=== PATIENT | female | born 1960 | race Caucasian/White ===

== ENCOUNTER → 2016-11-23 | Outpatient (CLI) | payer BC ==
--- NOTE | 2016-11-24 09:53 | MM ---
Reason for exam: screening (asymptomatic). Last mammogram was performed 1 year ago. History: Patient is postmenopausal. Family history of breast cancer in maternal aunt. Benign cyst aspiration of the left breast, July 24, 2003. Taking estrogen for 1 year beginning at age 51. Physical Findings: A clinical breast exam by your physician is recommended on an annual basis and results should be correlated with mammographic findings. MG Screening Mammo w CAD Bilateral CC and MLO view(s) were taken. Prior study comparison: November 22, 2015, bilateral MG screening mammo w CAD. November 20, 2014, bilateral MG screening mammo w CAD. The breast tissue is heterogeneously dense. This may lower the sensitivity of mammography. No significant changes when compared with prior studies. ASSESSMENT: Benign, BI-RAD 2 RECOMMENDATION: Routine screening mammogram of both breasts in 1 year.
== END | disposition home or self-care (01) ==
LOC: RADMAMWWP 09:11
PROVIDERS: ATTEND Obstetrics & Gynecology
DX: Z12.31 Encounter for screening mammogram for malignant neoplasm of breast (principal); Z80.3 Family history of malignant neoplasm of breast

== ENCOUNTER → 2017-11-26 | Outpatient (CLI) | payer BC ==
--- NOTE | 2017-11-27 10:27 | MM ---
Reason for exam: screening (asymptomatic). Last mammogram was performed 1 year ago. History: Patient is postmenopausal. Family history of breast cancer in maternal aunt. Benign cyst aspiration of the left breast, July 24, 2003. Taking estrogen for 1 year beginning at age 51. Physical Findings: A clinical breast exam by your physician is recommended on an annual basis and results should be correlated with mammographic findings. MG Screening Mammo w CAD Bilateral CC and MLO view(s) were taken. Prior study comparison: November 23, 2016, bilateral MG screening mammo w CAD. November 22, 2015, bilateral MG screening mammo w CAD. The breast tissue is heterogeneously dense. This may lower the sensitivity of mammography. There is no discrete abnormality. ASSESSMENT: Negative, BI-RAD 1 RECOMMENDATION: Routine screening mammogram of both breasts in 1 year.
== END | disposition home or self-care (01) ==
LOC: RADMAMWWP 09:08
PROVIDERS: ATTEND Obstetrics & Gynecology
DX: Z12.31 Encounter for screening mammogram for malignant neoplasm of breast (principal)
CPT/HCPCS: 77067

== ENCOUNTER → 2018-05-15 | Outpatient (CLI) | payer BC ==
[2018-05-15 09:06] LABS: HCT 43.4 % (34.0-46.0); MCH 30.9 pg (25.0-35.0); MCHC 32.3 g/dL (31.0-37.0); MCV 95.7 fL (80.0-100.0); Platelet Count 289 k/uL (150-450); RBC 4.54 m/uL (3.80-5.40); RDW 12.5 % (11.5-15.5); WBC 5.4 k/uL (3.8-10.6)
[2018-05-15 09:24] LABS: Appearance,Urine Cloudy (Clear); Bacteria,Urine Rare /hpf; Bilirubin,Urine Negative (Negative); Blood,Urine Negative (Negative); Color,Urine Yellow; Glucose,Urine (UA) Negative (Negative); Ketones,Urine Negative (Negative); Leukocyte Esterase,Urine Negative (Negative); Mucus,Urine Few /hpf; Nitrite,Urine Negative (Negative); Protein,Urine Trace (Negative); Specific Gravity,Urine 1.021 (1.001-1.035); Squamous Epithelial Cell,Urine 10 /hpf (0-4); Urobilinogen,Urine <2.0 mg/dL (<2.0); WBC,Urine 1 /hpf (0-5)
[2018-05-15 16:44] LABS: Albumin 4.4 g/dL (3.80-4.90); Albumin/Globulin Ratio 2.59 (1.20-2.10); Anion Gap 8.2 mmol/L (4.00-12.00); Calcium 9.3 mg/dL (8.7-10.3); Carbon Dioxide 26.8 mmol/L (21.6-31.8); Globulin 1.7 g/dL (1.6-3.3); LDL Cholesterol,Calculated 64.4 mg/dL (0.0-131.0); Potassium 3.8 mmol/L (3.5-5.5); Total Bilirubin 0.5 mg/dL (0.2-1.2); Total Protein 6.1 g/dL (6.2-8.2); VLDL Calculation 31.6 mg/dL (5.00-40.00)
[2018-05-15 16:47] LABS: T4, Free (Free Thyroxine) 1.1 ng/dL (0.80-1.80)
== END | disposition home or self-care (01) ==
LOC: LABWHC1 08:24
PROVIDERS: ATTEND Family Medicine
DX: Z00.00 Encounter for general adult medical examination without abnormal findings (principal); R79.89 Other specified abnormal findings of blood chemistry; I10 Essential (primary) hypertension
CPT/HCPCS: 36415; 80053; 80061; 81001; 84439; 84443; 85027

== ENCOUNTER → 2019-01-02 | Outpatient (CLI) | payer BC ==
--- NOTE | 2019-01-06 10:16 | MM ---
Reason for exam: screening (asymptomatic). Last mammogram was performed 1 year and 1 month ago. History: Patient is postmenopausal. Family history of breast cancer in maternal aunt. Benign cyst aspiration of the left breast, July 24, 2003. Taking estrogen for 1 year beginning at age 51. Physical Findings: A clinical breast exam by your physician is recommended on an annual basis and results should be correlated with mammographic findings. MG Screening Mammo w CAD Bilateral CC and MLO view(s) were taken. Prior study comparison: November 26, 2017, bilateral MG screening mammo w CAD. November 23, 2016, bilateral MG screening mammo w CAD. The breast tissue is heterogeneously dense. This may lower the sensitivity of mammography. No suspicious abnormality. No significant changes when compared with prior studies. ASSESSMENT: Negative, BI-RAD 1 RECOMMENDATION: Routine screening mammogram of both breasts in 1 year.
== END | disposition home or self-care (01) ==
LOC: RADMAMWWP 16:20
PROVIDERS: ATTEND Obstetrics & Gynecology
DX: Z12.31 Encounter for screening mammogram for malignant neoplasm of breast (principal)
CPT/HCPCS: 77067

== ENCOUNTER 2019-05-12 12:01 | Day surgery (SDC) | payer BC ==
[2019-05-08 11:13] VITALS: BMI 31.7
[2019-05-12 12:25] VITALS: TEMP 97.3
[2019-05-12] MEDS ORDERED: LIDOCAINE 1% 20 ML VIAL (10MG/ML) FOR IV START INTRADERMA ONE (12:28)
[2019-05-12] MEDS ORDERED: LACTATED RINGERS 1,000 ML IV ONE (12:29)
[2019-05-12] MEDS ORDERED: PROPOFOL 10 MG/ML 20 ML VIAL IV ONE (13:30)
[2019-05-12] MEDS ORDERED: MIDAZOLAM 2 MG/2 ML VIAL ONE (13:30)
[2019-05-12 14:25] VITALS: RESP 16
[2019-05-12 14:49] VITALS: BP 143/84; PULSE 70
--- NOTE | 2019-05-12 15:52 | P.PCN ---
Date of Procedure: 05/12/19 Procedure(s) Performed: PREOPERATIVE DIAGNOSIS: Rectal bleeding POSTOPERATIVE DIAGNOSIS: Anterior anal fissure with sentinel tag PROCEDURE: Colonoscopy ANESTHESIA: MAC SURGEON: Isauro Majano M.D. SPECIMENS: None ENDOSCOPIC PROCEDURE: The patient was placed on the endoscopy table in the left decubitus position. The Olympus colonoscope was inserted into the anus and passed under direct visualization to the base of the cecum. The appendiceal orifice was visualized. From that point the scope was slowly withdrawn inspecting all surfaces carefully. There were no neoplastic inflammatory or polypoid lesions throughout the cecum, ascending, transverse, descending, sigmoid and rectum. There was no visible diverticulosis noted. The patient's colon was tortuous. There was some relative lack of distensibility of the colon throughout particularly throughout the sigmoid colon. 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 No additional masses or abnormalities were identified on palpation. The patient was taken to the recovery room in stable condition per anesthesia guidelines. RECOMMENDATIONS: Increase stool softeners. Increase dietary fiber and hydration. Begin nitroglycerin ointment. Follow-up in the office 1 month.
== END 2019-05-12 15:08 | disposition home or self-care (01) ==
LOC: ORWHC2ENDO 12:01
PROVIDERS: ATTEND Surgery
DX: K60.1 Chronic anal fissure (principal); K62.5 Hemorrhage of anus and rectum; Q43.8 Other specified congenital malformations of intestine; H81.09 Meniere's disease, unspecified ear; E66.9 Obesity, unspecified; Z88.1 Allergy status to other antibiotic agents; Z68.31 Body mass index [BMI] 31.0-31.9, adult; Z90.710 Acquired absence of both cervix and uterus; Z79.899 Other long term (current) drug therapy; Z90.49 Acquired absence of other specified parts of digestive tract; Z82.49 Family history of ischemic heart disease and other diseases of the circulatory system; Z82.3 Family history of stroke
CPT/HCPCS: 45378; J2250; J2704

== ENCOUNTER → 2019-06-30 | Outpatient (CLI) | payer BC ==
[2019-06-30 08:26] LABS: HCT 43.5 % (34.0-46.0); HGB 14.2 gm/dL (11.4-16.0); MCH 30.9 pg (25.0-35.0); MCHC 32.7 g/dL (31.0-37.0); MCV 94.6 fL (80.0-100.0); Mean Platelet Volume 7.7; Platelet Count 277 k/uL (150-450); RBC 4.59 m/uL (3.80-5.40); RDW 12.2 % (11.5-15.5); WBC 5.4 k/uL (3.8-10.6)
[2019-06-30 08:56] LABS: Bacteria,Urine Rare /hpf; Hyaline Casts,Urine 1 /lpf (0-2); Mucus,Urine Rare /hpf; RBC,Urine <1 /hpf (0-5); Squamous Epithelial Cell,Urine 14 /hpf (0-4); WBC,Urine 2 /hpf (0-5)
[2019-06-30 08:57] LABS: Appearance,Urine Clear (Clear); Color,Urine Yellow; Glucose,Urine (UA) Negative (Negative); Protein,Urine 1+ (Negative); Specific Gravity,Urine 1.005 (1.001-1.035)
[2019-06-30 08:58] LABS: Bilirubin,Urine Negative (Negative); Blood,Urine Negative (Negative); Ketones,Urine Negative (Negative); Leukocyte Esterase,Urine Negative (Negative); Nitrite,Urine Negative (Negative); Urobilinogen,Urine <2.0 mg/dL (<2.0)
[2019-06-30 11:40] LABS: African American GFR (CKD) 92.9 (60.0-200.0); Albumin 4.4 g/dL (3.80-4.90); Albumin/Globulin Ratio 2.59 (1.60-3.17); Anion Gap 4.3 mmol/L (4.00-12.00); BUN/Creat Ratio 16.25 Ratio (12.00-20.00); Calcium 9.6 mg/dL (8.7-10.3); Carbon Dioxide 31.7 mmol/L (21.6-31.8); Chol/HDL Ratio 1.75; Globulin 1.7 g/dL (1.6-3.3); Non-African American GFR(CKD) 80.1 (60.0-200.0); Total Bilirubin 0.5 mg/dL (0.2-1.2); Total Protein 6.1 g/dL (6.2-8.2)
[2019-06-30 11:50] LABS: T4, Free (Free Thyroxine) 1.2 ng/dL (0.80-1.80)
== END | disposition home or self-care (01) ==
LOC: LABWHC1 07:48
PROVIDERS: ATTEND Family Medicine
DX: I10 Essential (primary) hypertension (principal); R94.6 Abnormal results of thyroid function studies
CPT/HCPCS: 36415; 80053; 80061; 81001; 84439; 84443; 84481; 85027

== ENCOUNTER → 2020-02-12 | Outpatient (CLI) | payer BC ==
--- NOTE | 2020-02-13 11:02 | MM ---
Reason for exam: screening (asymptomatic). Last mammogram was performed 1 year and 1 month ago. History: Patient is postmenopausal. Family history of breast cancer in maternal aunt. Benign cyst aspiration of the left breast, July 24, 2003. Taking estrogen for 8 years beginning at age 51. Physical Findings: A clinical breast exam by your physician is recommended on an annual basis and results should be correlated with mammographic findings. MG Screening Mammo w CAD Bilateral CC and MLO view(s) were taken. Prior study comparison: January 02, 2019, bilateral MG screening mammo w CAD. November 26, 2017, bilateral MG screening mammo w CAD. The breast tissue is heterogeneously dense. This may lower the sensitivity of mammography. There is no discrete abnormality. Focal asymmetry upper outer left breast is stable since 2016. No significant changes when compared with prior studies. ASSESSMENT: Benign, BI-RAD 2 RECOMMENDATION: Routine screening mammogram of both breasts in 1 year.
== END | disposition home or self-care (01) ==
LOC: RADMAMWWP 09:21
PROVIDERS: ATTEND Obstetrics & Gynecology
DX: Z12.31 Encounter for screening mammogram for malignant neoplasm of breast (principal)
CPT/HCPCS: 77067

== ENCOUNTER → 2020-05-31 | Outpatient (CLI) | payer BC ==
[2020-05-31 08:27] LABS: HCT 42.4 % (34.0-46.0); HGB 14.4 gm/dL (11.4-16.0); MCH 31.9 pg (25.0-35.0); MCHC 33.9 g/dL (31.0-37.0); MCV 94.2 fL (80.0-100.0); Mean Platelet Volume 7.5; Platelet Count 239 k/uL (150-450); RDW 12.4 % (11.5-15.5); WBC 4.9 k/uL (3.8-10.6)
[2020-05-31 10:58] LABS: African American GFR (CKD) 92.2 (60.0-200.0); Albumin 4.4 g/dL (3.80-4.90); Albumin/Globulin Ratio 2.59 (1.60-3.17); Anion Gap 5.5 mmol/L (4.00-12.00); Calcium 9.5 mg/dL (8.7-10.3); Carbon Dioxide 32.5 mmol/L (21.6-31.8); Chol/HDL Ratio 1.93; Globulin 1.7 g/dL (1.6-3.3); LDL Cholesterol,Calculated 56.2 mg/dL (0.0-131.0); Non-African American GFR(CKD) 79.6 (60.0-200.0); Potassium 3.8 mmol/L (3.5-5.5); Total Bilirubin 0.5 mg/dL (0.3-1.2); Total Protein 6.1 g/dL (6.2-8.2); VLDL Calculation 19.8 mg/dL (5.00-40.00)
== END | disposition home or self-care (01) ==
LOC: LABWHC1 07:52
PROVIDERS: ATTEND Family Medicine
DX: Z00.01 Encounter for general adult medical examination with abnormal findings (principal); R53.83 Other fatigue; I10 Essential (primary) hypertension; E66.3 Overweight
CPT/HCPCS: 36415; 80053; 80061; 85027

== ENCOUNTER 2020-08-21 19:44 | Emergency (ER) | payer BC ==
[2020-08-21 19:49] VITALS: RESP 16; TEMP 97.5
--- NOTE | 2020-08-21 19:54 | ED ---
General Adult HPI - General Chief complaint: Dizziness Stated complaint: dizziness Time Seen by Provider: 08/21/20 19:51 Source: patient, EMS Mode of arrival: EMS Limitations: no limitations - History of Present Illness Initial comments: Patient presents to the ED by ambulance for evaluation. Patient states that she has felt dizzy since after eating lunch this afternoon. Patient states that she took her blood pressure at that time, and she obtained a reading of 170/110, which is very high for her. Patient also states that she had "pounding" heart palpitations earlier today. Patient denies having any dizziness or palpitations currently, and she denies having any symptoms at all at this time. Per EMS, the patient was thought to be in rapid atrial fibrillation on their front desk monitor, but rhythm strips printed out by EMS show sinus tachycardia and not atrial fibrillation. Patient denies having any pain, fever or chills, headache, focal numbness/weakness/neuro deficit, visual changes, chest pain or pressure, dyspnea, cough or cold symptoms, syncope, abdominal pain, nausea/vomiting/diarrhea, bloody or melanotic stool, dysuria or urinary symptoms, leg or calf swelling or pain, or any other symptoms or complaints. - Related Data Home Medications Medication Instructions Recorded Confirmed Cetirizine HCl [Zyrtec] 10 mg PO HS 05/08/19 08/21/20 Triamterene-Hctz 37.5-25Mg 1 tab PO DAILY 05/08/19 08/21/20 [Dyazide 37.5-25 Capsule] Estrogens, Conjugated [Premarin] 0.3 mg PO AC-SUPPER 08/21/20 08/21/20 Fluticasone Nasal [place] [Flonase 2 spr EA NOSTRIL DAILY PRN 08/21/20 08/21/20 Nasal [place]] Multivitamins, Thera [Multivitamin 1 tab PO AC-SUPPER 08/21/20 08/21/20 (formulary)] Allergies Allergy/AdvReac Type Severity Reaction Status Date / Time amoxicillin Allergy Rash/Hives Verified 08/21/20 21:08 Review of Systems ROS Statement: Those systems with pertinent positive or pertinent negative responses have been documented in the HPI. ROS Other: All systems not noted in ROS Statement are negative. Past Medical History Past Medical History: Hypertension Additional Past Medical History / Comment(s): hx of menieres, possible hemmorhoids History of Any Multi-Drug Resistant Organisms: None Reported Past Surgical History: Appendectomy, Section Additional Past Surgical History / Comment(s): colonoscopy Past Anesthesia/Blood Transfusion Reactions: No Reported Reaction Past Psychological History: No Psychological Hx Reported Smoking Status: Never smoker Past Alcohol Use History: Rare Past Drug Use History: None Reported - Past Family History Mother Family Medical History: No Reported History General Exam Limitations: no limitations General appearance: alert, in no apparent distress Head exam: Present: atraumatic, normocephalic Eye exam: Present: normal appearance, PERRL, EOMI ENT exam: Present: mucous membranes moist Neck exam: Present: other (Trachea is in midline) Respiratory exam: Present: normal lung sounds bilaterally. Absent: respiratory distress, wheezes, rales, rhonchi, stridor Cardiovascular Exam: Present: regular rate, normal rhythm, normal heart sounds, other (Normal radial pulses bilaterally) GI/Abdominal exam: Present: soft. Absent: distended, tenderness, guarding Extremities exam: Absent: tenderness, pedal edema, calf tenderness Neurological exam: Present: alert, oriented X3, CN II-XII intact. Absent: motor sensory deficit Psychiatric exam: Present: normal affect, normal mood Skin exam: Present: warm, dry, intact, normal color Course Vital Signs 08/21/20 19:46 Temperature 97.5 F L Pulse Rate 91 Respiratory 16 Rate Blood Pressure 144/86 O2 Sat by Pulse 100 Oximetry - Reevaluation(s) Reevaluation #1: 08/21/20 22:58 Patient continues to deny having any dizziness, palpitations or symptoms while in the ED. Patient remains in normal sinus rhythm on the front desk monitor. Patient continues to be breathing comfortably with a normal room air oxygen saturation. Patient states that she has been ambulatory to the bathroom while in the ED without development of any symptoms. Patient and son are aware the patient's test results, and they both feel comfortable with the patient going home at this time. Patient was counseled about dizziness and palpitations, and she was clearly explained return and follow-up instructions. Patient was instructed to have a low threshold for return to the ED should her symptoms worsen, and she was instructed to follow up closely with her primary care provider. Patient feels comfortable this plan. EKG Findings - EKG Comments: EKG Findings:: Normal sinus rhythm, ventricular rate of 85 bpm, no ectopy, no OK and QRS intervals, normal QT interval, normal axis, no ST or T-wave abnormality, left anterior fascicular block Medical Decision Making - Medical Decision Making Patient has been in normal sinus rhythm while in the emergency department. Patient's EMS rhythm strips also demonstrate a sinus rhythm. Patient's labs and imaging studies are fairly unremarkable. Patient has been asymptomatic while in the ED. I do not suspect an emergent medical condition at this time. Will discharge patient home with her son at this time. Patient feels comfortable this plan. - Lab Data Result diagrams: 08/21/20 20:00 08/21/20 20:00 Lab Results 08/21/20 08/21/20 08/21/20 Range/Units 20:00 20:00 20:00 WBC 7.2 (3.8-10.6) k/uL RBC 5.00 (3.80-5.40) m/uL Hgb 15.1 (11.4-16.0) gm/dL Hct 45.9 (34.0-46.0) % MCV 91.7 (80.0-100.0) fL MCH 30.3 (25.0-35.0) pg MCHC 33.0 (31.0-37.0) g/dL RDW 12.9 (11.5-15.5) % Plt Count 302 (150-450) k/uL MPV 7.6 Neutrophils % 62 % Lymphocytes % 27 % Monocytes % 5 % Eosinophils % 3 % Basophils % 1 % Neutrophils # 4.5 (1.3-7.7) k/uL Lymphocytes # 1.9 (1.0-4.8) k/uL Monocytes # 0.4 (0-1.0) k/uL Eosinophils # 0.2 (0-0.7) k/uL Basophils # 0.1 (0-0.2) k/uL PT 10.6 (9.0-12.0) sec INR 1.0 (<1.2) APTT 24.9 (22.0-30.0) sec Sodium 136 L (137-145) mmol/L Potassium 3.5 (3.5-5.1) mmol/L Chloride 101 (98-107) mmol/L Carbon Dioxide 23 (22-30) mmol/L Anion Gap 12 mmol/L BUN 16 (7-17) mg/dL Creatinine 0.81 (0.52-1.04) mg/dL Est GFR (CKD-EPI)AfAm >90 (>60 ml/min/1.73 sqM) Est GFR (CKD-EPI)NonAf 79 (>60 ml/min/1.73 sqM) Glucose 121 H (74-99) mg/dL Calcium 10.2 (8.4-10.2) mg/dL Magnesium 1.8 (1.6-2.3) mg/dL Troponin I (0.000-0.034) ng/mL 08/21/20 Range/Units 20:00 WBC (3.8-10.6) k/uL RBC (3.80-5.40) m/uL Hgb (11.4-16.0) gm/dL Hct (34.0-46.0) % MCV (80.0-100.0) fL MCH (25.0-35.0) pg MCHC (31.0-37.0) g/dL RDW (11.5-15.5) % Plt Count (150-450) k/uL MPV Neutrophils % % Lymphocytes % % Monocytes % % Eosinophils % % Basophils % % Neutrophils # (1.3-7.7) k/uL Lymphocytes # (1.0-4.8) k/uL Monocytes # (0-1.0) k/uL Eosinophils # (0-0.7) k/uL Basophils # (0-0.2) k/uL PT (9.0-12.0) sec INR (<1.2) APTT (22.0-30.0) sec Sodium (137-145) mmol/L Potassium (3.5-5.1) mmol/L Chloride (98-107) mmol/L Carbon Dioxide (22-30) mmol/L Anion Gap mmol/L BUN (7-17) mg/dL Creatinine (0.52-1.04) mg/dL Est GFR (CKD-EPI)AfAm (>60 ml/min/1.73 sqM) Est GFR (CKD-EPI)NonAf (>60 ml/min/1.73 sqM) Glucose (74-99) mg/dL Calcium (8.4-10.2) mg/dL Magnesium (1.6-2.3) mg/dL Troponin I 0.017 (0.000-0.034) ng/mL - Radiology Data Radiology results: report reviewed (Chest x-ray: No acute process) Disposition Clinical Impression: Dizziness, Palpitations Disposition: HOME SELF-CARE Condition: Stable Instructions (If sedation given, give patient instructions): Dizziness (ED), Heart Palpitations (ED) Additional Instructions: Return to the ER immediately should you develop increased dizziness, fainting, chest pain, shortness of breath, persistent vomiting, a fever, or new or worsening symptoms. Follow up closely with your primary care provider. Is patient prescribed a controlled substance at d/c from ED?: No Referrals: Avery Tate MD [Primary Care Provider] - 1-2 days Time of Disposition: 23:01
[2020-08-21] MEDS ORDERED: SODIUM CHLORIDE 0.9% 500 ML 500 ML IV STA (20:34)
[2020-08-21 20:55] LABS: Basophils # (A) 0.1 k/uL (0-0.2); Basophils % (A) 1 %; Eosinophils # (A) 0.2 k/uL (0-0.7); Eosinophils % (A) 3 %; HCT 45.9 % (34.0-46.0); HGB 15.1 gm/dL (11.4-16.0); Lymphocytes # (A) 1.9 k/uL (1.0-4.8); Lymphocytes % (A) 27 %; MCH 30.3 pg (25.0-35.0); MCV 91.7 fL (80.0-100.0); Mean Platelet Volume 7.6; Monocytes # (A) 0.4 k/uL (0-1.0); Monocytes % (A) 5 %; Neutrophils # (A) 4.5 k/uL (1.3-7.7); Neutrophils % (A) 62 %; Platelet Count 302 k/uL (150-450); RDW 12.9 % (11.5-15.5); WBC 7.2 k/uL (3.8-10.6)
[2020-08-21 21:05] LABS: African American GFR (CKD) >90 (>60 ml/min/1.73 sqM); Anion Gap 12 mmol/L; Blood Urea Nitrogen 16 mg/dL (7-17); Calcium 10.2 mg/dL (8.4-10.2); Carbon Dioxide 23 mmol/L (22-30); Chloride 101 mmol/L (98-107); Glucose 121 mg/dL (74-99); Magnesium 1.8 mg/dL (1.6-2.3); Non-African American GFR(CKD) 79 (>60 ml/min/1.73 sqM); Potassium 3.5 mmol/L (3.5-5.1); Sodium 136 mmol/L (137-145)
[2020-08-21 21:15] LABS: Partial Thromboplastin Time 24.9 sec (22.0-30.0); Prothrombin Time 10.6 sec (9.0-12.0)
--- NOTE | 2020-08-21 21:46 | XR ---
EXAMINATION TYPE: XR chest 1V portable DATE OF EXAM: 08/21/2020 COMPARISON: 06/12/2013. HISTORY: Dizziness. TECHNIQUE: Single frontal view of the chest is obtained. FINDINGS: There is no focal air space opacity, pleural effusion, or pneumothorax seen. The cardiac silhouette size is within normal limits. The osseous structures are intact. IMPRESSION: No acute process.
[2020-08-21 23:14] VITALS: BP 143/90; PULSE 82
== END 2020-08-21 23:15 | disposition home or self-care (01) ==
LOC: EC 19:44
DX: R42 Dizziness and giddiness (principal); R00.2 Palpitations; I10 Essential (primary) hypertension
CPT/HCPCS: 36415; 71045; 80048; 83735; 84484; 85025; 85610; 85730; 93005; 99284

== ENCOUNTER → 2021-02-21 | Outpatient (CLI) | payer BC ==
--- NOTE | 2021-02-22 12:10 | MM ---
Reason for exam: screening (asymptomatic). Last mammogram was performed 1 year ago. History: Patient is postmenopausal. Family history of breast cancer in maternal aunt. Benign cyst aspiration of the left breast, July 24, 2003. Taking estrogen for 8 years beginning at age 51. Physical Findings: A clinical breast exam by your physician is recommended on an annual basis and results should be correlated with mammographic findings. MG Screening Mammo w CAD Bilateral CC and MLO view(s) were taken. Prior study comparison: February 12, 2020, bilateral MG screening mammo w CAD. January 02, 2019, bilateral MG screening mammo w CAD. The breast tissue is heterogeneously dense. This may lower the sensitivity of mammography. There is no discrete abnormality. ASSESSMENT: Negative, BI-RAD 1 RECOMMENDATION: Routine screening mammogram of both breasts in 1 year.
== END | disposition home or self-care (01) ==
LOC: RADMAMWWP 09:47
PROVIDERS: ATTEND Obstetrics & Gynecology
DX: Z12.31 Encounter for screening mammogram for malignant neoplasm of breast (principal); Z80.3 Family history of malignant neoplasm of breast
CPT/HCPCS: 77067

== ENCOUNTER 2021-05-24 17:30 | Inpatient (IN) | payer BC ==
[2021-05-24] MEDS ORDERED: SODIUM CHLORIDE 0.9% 1,000 ML IV STA (17:47)
[2021-05-24] MEDS ORDERED: HEPARIN SODIUM 1,000 UN/ML (10ML VL) IV PRN (17:53)
[2021-05-24] MEDS ORDERED: HEPARIN SODIUM 1,000 UN/ML (10ML VL) IV ONE (17:53)
[2021-05-24] MEDS ORDERED: DILTIAZEM DRIP BOLUS FROM BAG 1 MG SOLN IV ONE (17:53)
--- NOTE | 2021-05-24 17:57 | ED ---
Dizziness HPI - General Chief Complaint: Dizziness Stated Complaint: AFIB Time Seen by Provider: 05/24/21 17:42 Source: patient, EMS Mode of arrival: EMS Limitations: no limitations - History of Present Illness Initial Comments: Dictation was produced using [employer] dictation software. please excuse any grammatical, word or spelling errors. Chief Complaint: 61-year-old female with past medical history of hypertension hemorrhoids presents to the emergency department for dizziness palpitations History of Present Illness: Is 61-year-old female she denies any history of cardiac comorbidities. She has history of hypertension. She presents emergency department with palpitations and dizziness patient states that her symptoms began around 2:30 PM today. Patient denies any chest pain. She does feel mildly dizzy but not lightheaded. Patient denies any history of atrial fibrillation or any cardiac comorbidities. Denies any fevers. The ROS documented in this emergency department record has been reviewed and confirmed by me. Those systems with pertinent positive or negative responses have been documented in the HPI. All other systems are other negative and/or noncontributory. PHYSICAL EXAM: General Impression: Alert and oriented x3, not in acute distress, nondiaphoretic HEENT: Normocephalic atraumatic, extra-ocular movements intact, pupils equal and reactive to light bilaterally, mucous membranes moist. Cardiovascular: Irregularly irregular Chest: Able to complete full sentences, no retractions, no tachypnea Abdomen: abdomen soft, non-tender, non-distended, no organomegaly Musculoskeletal: Pulses present and equal in all extremities, no peripheral edema Motor: no focal deficits noted Neurological: CN II-XII grossly intact, no focal motor or sensory deficits noted Skin: Intact with no visualized rashes Psych: Normal affect and mood ED course: 61-year-old female presents to the emergency department for pa lpitations and dizziness. Vital signs upon arrival shows heart rate 139, rest of vital signs within acceptable limits. EKG shows irregular narrow QRS complex tachycardia. There are no signs of ischemia or infarction. Patient given Cardizem bolus and started on Cardizem drip with improvement of heart rate. Patient's monitor review. She converted to normal sinus rhythm at approximately 641. Vital signs are significantly improved with normal heart rate normal blood pressure. EKG interpretation: Ventricular rate 52, A. fib with RVR, QRS 80, QTC 492. No no QTC prolongation, no ST or T-wave changes noted. EKG compared to 08/21/2020 showing no changes. Overall, this EKG is consistent with new onset A. fib. Laboratory evaluation obtained. CBC unremarkable. Coag panel is negative. Metabolic panel within acceptable limits. Mild hypokalemia of 3.3. Lactic acidosis 2.5. Troponin 0.013. Patient has history of slightly elevated troponin. Patient reevaluated at bedside at 7:30 PM. She is well-appearing. She is currently in normal sinus rhythm. Patient likely experiencing paroxysmal atrial fibrillation. Patient be admitted. She'll be maintained on heparin and cardiology was consulted. Patient admitted to [facility]. - Related Data Home Medications Medication Instructions Recorded Confirmed Cetirizine HCl [Zyrtec] 10 mg PO HS 05/08/19 05/24/21 Triamterene-Hctz 37.5-25Mg 1 tab PO DAILY 05/08/19 05/24/21 [Dyazide 37.5-25 Capsule] ALPRAZolam [Xanax] 0.125 - 0.25 mg PO TID PRN 05/24/21 05/24/21 Estrogens, Conjugated [Premarin] 0.625 mg PO W/SUPPER 05/24/21 05/24/21 Multivit-Min/Iron/Folic/Lutein 1 tab PO W/SUPPER 05/24/21 05/24/21 [Centrum Silver Women Tablet] Allergies Allergy/AdvReac Type Severity Reaction Status Date / Time amoxicillin Allergy Rash/Hives Verified 08/21/20 21:08 Review of Systems ROS Statement: Those systems with pertinent positive or pertinent negative responses have been documented in the HPI. ROS Other: All systems not noted in ROS Statement are negative. Past Medical History Past Medical History: Hypertension Additional Past Medical History / Comment(s): hx of menieres, possible hemmorhoi ds History of Any Multi-Drug Resistant Organisms: None Reported Past Surgical History: Appendectomy, Section Additional Past Surgical History / Comment(s): colonoscopy Past Anesthesia/Blood Transfusion Reactions: No Reported Reaction Past Psychological History: No Psychological Hx Reported Smoking Status: Never smoker Past Alcohol Use History: Rare Past Drug Use History: None Reported - Past Family History Mother Family Medical History: No Reported History General Exam Limitations: no limitations Course Vital Signs 05/24/21 05/24/21 05/24/21 17:43 17:58 18:11 Temperature 97.4 F L Pulse Rate 139 H 174 H 126 H Respiratory 18 18 18 Rate Blood Pressure 136/117 175/107 113/92 O2 Sat by Pulse 99 99 98 Oximetry 05/24/21 18:53 Temperature Pulse Rate 85 Respiratory 16 Rate Blood Pressure 149/92 O2 Sat by Pulse 98 Oximetry Medical Decision Making - Lab Data Result diagrams: 05/24/21 18:03 05/24/21 18:03 Lab Results 05/24/21 05/24/21 05/24/21 Range/Units 18:03 18:03 18:03 WBC 7.0 (3.8-10.6) k/uL RBC 5.02 (3.80-5.40) m/uL Hgb 16.1 H (11.4-16.0) gm/dL Hct 48.2 H (34.0-46.0) % MCV 96.1 (80.0-100.0) fL MCH 32.1 (25.0-35.0) pg MCHC 33.4 (31.0-37.0) g/dL RDW 12.9 (11.5-15.5) % Plt Count 312 (150-450) k/uL MPV 7.5 Neutrophils % 61 % Lymphocytes % 27 % Monocytes % 5 % Eosinophils % 3 % Basophils % 1 % Neutrophils # 4.3 (1.3-7.7) k/uL Lymphocytes # 1.9 (1.0-4.8) k/uL Monocytes # 0.4 (0-1.0) k/uL Eosinophils # 0.2 (0-0.7) k/uL Basophils # 0.1 (0-0.2) k/uL PT 10.0 (9.0-12.0) sec INR 0.9 (<1.2) APTT 24.7 (22.0-30.0) sec Sodium 140 (137-145) mmol/L Potassium 3.3 L (3.5-5.1) mmol/L Chloride 103 (98-107) mmol/L Carbon Dioxide 24 (22-30) mmol/L Anion Gap 13 mmol/L BUN 15 (7-17) mg/dL Creatinine 0.72 (0.52-1.04) mg/dL Est GFR (CKD-EPI)AfAm >90 (>60 ml/min/1.73 sqM) Est GFR (CKD-EPI)NonAf >90 (>60 ml/min/1.73 sqM) Glucose 144 H (74-99) mg/dL Plasma Lactic Acid [place] (0.7-2.0) mmol/L Calcium 10.0 (8.4-10.2) mg/dL Magnesium 1.8 (1.6-2.3) mg/dL Total Bilirubin 0.4 (0.2-1.3) mg/dL AST 20 (14-36) U/L ALT 16 (4-34) U/L Alkaline Phosphatase 65 (38-126) U/L Troponin I (0.000-0.034) ng/mL NT-Pro-B Natriuret Pep pg/mL Total Protein 7.3 (6.3-8.2) g/dL Albumin 4.6 (3.5-5.0) g/dL 05/24/21 05/24/21 05/24/21 Range/Units 18:03 18:03 19:00 WBC (3.8-10.6) k/uL RBC (3.80-5.40) m/uL Hgb (11.4-16.0) gm/dL Hct (34.0-46.0) % MCV (80.0-100.0) fL MCH (25.0-35.0) pg MCHC (31.0-37.0) g/dL RDW (11.5-15.5) % Plt Count (150-450) k/uL MPV Neutrophils % % Lymphocytes % % Monocytes % % Eosinophils % % Basophils % % Neutrophils # (1.3-7.7) k/uL Lymphocytes # (1.0-4.8) k/uL Monocytes # (0-1.0) k/uL Eosinophils # (0-0.7) k/uL Basophils # (0-0.2) k/uL PT (9.0-12.0) sec INR (<1.2) APTT (22.0-30.0) sec Sodium (137-145) mmol/L Potassium (3.5-5.1) mmol/L Chloride (98-107) mmol/L Carbon Dioxide (22-30) mmol/L Anion Gap mmol/L BUN (7-17) mg/dL Creatinine (0.52-1.04) mg/dL Est GFR (CKD-EPI)AfAm (>60 ml/min/1.73 sqM) Est GFR (CKD-EPI)NonAf (>60 ml/min/1.73 sqM) Glucose (74-99) mg/dL Plasma Lactic Acid Ruben 2.5 H* (0.7-2.0) mmol/L Calcium (8.4-10.2) mg/dL Magnesium (1.6-2.3) mg/dL Total Bilirubin (0.2-1.3) mg/dL AST (14-36) U/L ALT (4-34) U/L Alkaline Phosphatase (38-126) U/L Troponin I 0.013 (0.000-0.034) ng/mL NT-Pro-B Natriuret Pep 67 pg/mL Total Protein (6.3-8.2) g/dL Albumin (3.5-5.0) g/dL Disposition Clinical Impression: New onset a-fib Disposition: ADMITTED IP TO THIS HOSP Condition: Fair Referrals: Avery Tate MD [Primary Care Provider] - 1-2 days
[2021-05-24] MEDS ORDERED: HEPARIN SOD,PORK IN 0.45% NACL 25,000 UNIT in 0.45% NACL 1 250ML.BAG IV SCH (18:00)
[2021-05-24] MEDS ORDERED: DILTIAZEM 125 MG in SODIUM CHLORIDE 0.9% 100 ML IV SCH (18:00)
[2021-05-24 18:10] LABS: Basophils # (A) 0.1 k/uL (0-0.2); Basophils % (A) 1 %; Eosinophils # (A) 0.2 k/uL (0-0.7); Eosinophils % (A) 3 %; HCT 48.2 % (34.0-46.0); HGB 16.1 gm/dL (11.4-16.0); Lymphocytes # (A) 1.9 k/uL (1.0-4.8); Lymphocytes % (A) 27 %; MCH 32.1 pg (25.0-35.0); MCHC 33.4 g/dL (31.0-37.0); MCV 96.1 fL (80.0-100.0); Mean Platelet Volume 7.5; Monocytes # (A) 0.4 k/uL (0-1.0); Monocytes % (A) 5 %; Neutrophils # (A) 4.3 k/uL (1.3-7.7); Neutrophils % (A) 61 %; Platelet Count 312 k/uL (150-450); RBC 5.02 m/uL (3.80-5.40); RDW 12.9 % (11.5-15.5)
[2021-05-24 18:21] LABS: ALT 16 U/L (4-34); AST 20 U/L (14-36); African American GFR (CKD) >90 (>60 ml/min/1.73 sqM); Albumin 4.6 g/dL (3.5-5.0); Alkaline Phosphatase 65 U/L (38-126); Anion Gap 13 mmol/L; Blood Urea Nitrogen 15 mg/dL (7-17); Carbon Dioxide 24 mmol/L (22-30); Chloride 103 mmol/L (98-107); Glucose 144 mg/dL (74-99); Magnesium 1.8 mg/dL (1.6-2.3); Non-African American GFR(CKD) >90 (>60 ml/min/1.73 sqM); Potassium 3.3 mmol/L (3.5-5.1); Sodium 140 mmol/L (137-145); Total Bilirubin 0.4 mg/dL (0.2-1.3); Total Protein 7.3 g/dL (6.3-8.2)
--- NOTE | 2021-05-24 18:44 | XR ---
EXAMINATION TYPE: XR chest 1V portable DATE OF EXAM: 05/24/2021 COMPARISON: 08/21/2020 HISTORY: 61 years Female. STUDY INDICATION GIVEN: afib rvr . TECHNIQUE: Frontal chest radiograph IMPRESSION: No focal airspace opacity, pneumothorax or pleural effusion. Normal cardiomediastinal silhouette. No acute osseous abnormality. No significant change in appearance compared to prior.
[2021-05-24 18:46] LABS: INR 0.9 (<1.2); Partial Thromboplastin Time 24.7 sec (22.0-30.0)
[2021-05-24] MEDS ORDERED: NALOXONE 0.4 MG/ML 1 ML VIAL IV PRN (19:39)
[2021-05-24] MEDS ORDERED: SODIUM CHLORIDE 0.9% 500 ML 500 ML IV ONE (20:53)
[2021-05-24] MEDS ORDERED: ALPRAZolam 0.25 MG TAB PO PRN (22:12)
[2021-05-24] MEDS ORDERED: POTASSIUM CHLORIDE ER 20 MEQ TAB.ER PO STA (22:17)
--- NOTE | 2021-05-24 22:22 | P.HPIM ---
History of Present Illness H&P Date: 05/24/21 Chief Complaint: Dizziness lightheadedness 61-year-old female with hypertension Patient comes in with sudden onset palpitations feeling dizzy and lightheaded started about 2:30 PM she noticed that her blood pressure was high with systolic in the 200 she denies any cardiac history other than hypertension in the past she denies ever having her blood pressure that high. She denies any associated chest pain or shortness of breath denies any headaches slurred speech changes in vision or hearing. Fluttering of the heart and dizziness did not go away and she decided come to the hospital for evaluation. She was found to be in A. fib with RVR she denies any history of A. fib in the past. However she does recall some episodes of fluttering in the past few years. She admits being under stress sick family members in life in general. She does not have any excessive caffeine intake. She denies any weight loss medications or any [id number] herbal products. She claims to be active person she walks daily with no limitations with physical activity EKG did confirm A. fib with RVR Patient started on Cardizem and heparin drip and admitted for cardiology evaluation Patient converted to sinus rhythm on Cardizem drip then she became briefly hypotensive Cardizem drip was discontinued and patient was given a liter bolus of IV fluid, this helps improve her symptoms blood pressure improved from systolic in the 80s up to 120 patient currently asymptomatic Review of Systems Pertinent positives as noted in HPI. All other systems were reviewed and are negative Past Medical History Past Medical History: Hypertension Additional Past Medical History / Comment(s): hx of menieres, possible hemmorhoids History of Any Multi-Drug Resistant Organisms: None Reported Past Surgical History: Appendectomy, Section Additional Past Surgical History / Comment(s): colonoscopy Past Anesthesia/Blood Transfusion Reactions: No Reported Reaction Past Psychological History: No Psychological Hx Reported Smoking Status: Never smoker Past Alcohol Use History: Rare Past Drug Use History: None Reported - Past Family History Mother Family Medical History: No Reported History Medications and Allergies Home Medications Medication Instructions Recorded Confirmed Type Cetirizine HCl [Zyrtec] 10 mg PO HS 05/08/19 05/24/21 History Triamterene-Hctz 37.5-25Mg 1 tab PO DAILY 05/08/19 05/24/21 History [Dyazide 37.5-25 Capsule] ALPRAZolam [Xanax] 0.125 - 0.25 mg PO TID PRN 05/24/21 05/24/21 History Estrogens, Conjugated [Premarin] 0.625 mg PO W/SUPPER 05/24/21 05/24/21 History Multivit-Min/Iron/Folic/Lutein 1 tab PO W/SUPPER 05/24/21 05/24/21 History [Centrum Silver Women Tablet] Allergies Allergy/AdvReac Type Severity Reaction Status Date / Time amoxicillin Allergy Rash/Hives Verified 08/21/20 21:08 Physical Exam Vitals: Vital Signs Temp Pulse Resp BP Pulse Ox 05/24/21 20:50 67 18 89/47 05/24/21 20:40 44 L 26 H 80/54 05/24/21 20:08 98.2 F 88 16 142/92 99 05/24/21 18:53 85 16 149/92 98 05/24/21 18:11 126 H 18 113/92 98 05/24/21 17:58 174 H 18 175/107 99 05/24/21 17:43 97.4 F L 139 H 18 136/117 99 Intake and Output 05/24/21 05/24/21 05/24/21 06:59 14:59 22:59 Intake Total 14.432 Balance 14.432 Intake: Intake, IV Titration 14.432 Amount Heparin Sod,Pork in 0.45% 14.432 NaCl 25,000 unit In 0.45 % NaCl 1 250ml.bag @ 12 UNITS/KG/HR 10.56 mls/hr IV .[id number] [facility] Rx#: [id number] Other: # Voids 1 Weight 87.997 kg Constitutional: No acute distress, conversant, pleasant Eyes: Anicteric sclerae, moist conjunctiva, Pupils equal round reactive to light ENMT: NC/AT Oropharynx clear, no erythema, or exudates Neck: Supple, no masses, or JVD No carotid bruits No thyromegaly Lungs: Clear to auscultation Clear to percussion Normal respiratory effort, no accessory muscle use Cardiovascular: Heart regular in rate and rhythm, No murmurs, gallops, or rubs No peripheral edema Abdominal: Soft Nontender, no guarding, rebound or rigidity Abdomen moving with respiration Normoactive bowel sounds No hepatomegaly, No splenomegaly No palpable mass No abdominal wall hernia noted Skin: Normal temperature, tone, texture, turgor No induration No subcutaneous nodules No rash, lesions No ulcers Extremities: No digital cyanosis No clubbing Pedal pulses intact and symmetrical Radial pulses intact and symmetrical No calf tenderness Psychiatric: Alert and oriented to person, place and time Appropriate affect fair judgement Neuro Muscles Strength 5/5 in all 4 extremities Sensation to light touch grossly present throughout Cranial nerves II-XII grossly intact No focal sensory deficits Lymphatics: no palpable cervical or supraclavicular , or inguinal lymph nodes Results CBC & Chem 7: 05/24/21 18:03 05/24/21 18:03 Labs: Abnormal Lab Results - Last 24 Hours (Table) 05/24/21 05/24/21 05/24/21 Range/Units 18:03 18:03 19:00 Hgb 16.1 H (11.4-16.0) gm/dL Hct 48.2 H (34.0-46.0) % Potassium 3.3 L (3.5-5.1) mmol/L Glucose 144 H (74-99) mg/dL Plasma Lactic Acid Ruben 2.5 H* (0.7-2.0) mmol/L Assessment and Plan Assessment: New onset A. fib with RVR symptomatic Mild hypokalemia Hypertension Trend troponins Cardiology evaluation heparin drip Cardizem drip, currently on hold patient converted into sinus rhythm Check TSH Replace potassium, follow-up levels Resume home hypertension medications Monitor vital signs Check echocardiogram monitoring tech DVT prophylaxis currently on heparin drip for A. fib Full code Anticipated length of stay less than 2 midnights
[2021-05-24] MEDS: LORATADINE 10 MG TAB PO SCH ×2 (22:42→22:46)
[2021-05-25 00:15] VITALS: TEMP 98.2
[2021-05-25] MEDS ORDERED: MELATONIN 5 MG TABLET PO SCH (01:00)
[2021-05-25 05:05] VITALS: BP 156/92
[2021-05-25] MEDS ORDERED: TRIAMTERENE-HCTZ 37.5-25MG 1 EACH CAP PO SCH (09:00)
[2021-05-25] MEDS ORDERED: APIXABAN 5 MG TAB PO SCH (09:00)
[2021-05-25 09:24] LABS: Basophils % (A) 1 %; Eosinophils # (A) 0.1 k/uL (0-0.7); Eosinophils % (A) 1 %; HCT 41.9 % (34.0-46.0); HGB 13.5 gm/dL (11.4-16.0); Lymphocytes # (A) 1.6 k/uL (1.0-4.8); Lymphocytes % (A) 25 %; MCH 31.4 pg (25.0-35.0); MCHC 32.3 g/dL (31.0-37.0); Mean Platelet Volume 7.6; Monocytes # (A) 0.3 k/uL (0-1.0); Monocytes % (A) 5 %; Neutrophils # (A) 4.2 k/uL (1.3-7.7); Neutrophils % (A) 66 %; Platelet Count 279 k/uL (150-450); RBC 4.32 m/uL (3.80-5.40); RDW 13.2 % (11.5-15.5); WBC 6.3 k/uL (3.8-10.6)
--- NOTE | 2021-05-25 09:46 | P.CRDCN ---
History of Present Illness History of present illness: HISTORY OF PRESENTING ILLNESS This is a pleasant 61-year-old male past medical history significant for hypertension. She does not follow with a pediatric surgeon. We have been asked to see in consultation for new onset atrial fibrillation. Patient presents to the emergency department with complaints of dizziness, lightheadedness, palpitations. Patient states yesterday she was doing her normal daily activities, running errands. She states she had acute onset of dizziness and lightheadedness and palpitations around 2:30 PM. She noted her blood pressure to be elevated systolic in 200s. She denies any chest pain, shortness of breath, nausea, vomiting, syncope. She denies any fever, cough, chills. She denies any weakness, headaches. Patient denies history of atrial fibrillation arrhythmia, coronary artery disease, Diabetes, Stroke, CO, Hyperlipidemia. She denies any alcohol use, tobacco use or illicit drug use. Her family history includes her mother has hypertension and her father had a stroke. Patient was given 20 mg IV Cardizem dose and started on a Cardizem drip at 10 mg/hr. patient converted to sinus mechanism. Patient is maintaining sinus mechanism, heart rate 70s80s. Her blood pressure was elevated on admission, but has improved to systolic 130-150s. She states her normal blood pressure at home is usually 130s/80s. DIAGNOSTICS EKG reveals atrial fibrillation with rapid ventricular response, heart rate 152. Repeat EKG when patient converted to sinus mechanism revealed sinus rhythm, heart rate 85, incomplete right bundle branch block, no significant ST or T-wave abnormalities. Telemetry tracings indicate sinus mechanism heart rate 70s80s. Chest xray no acute cardiopulmonary process. Laboratory reviewed, CBC unremarkable, sodium 140, potassium 3.3, BUN 15, serum creatinine 0.7, magnesium 1.8, proBNP 67, troponin 0.013, 0.037, 0.019, covid-19 negative Current home medications include Triamterene-Hctz 37.5-25mg daily REVIEW OF SYSTEMS At the time of my exam: CONSTITUTIONAL: Denies fever or chills. CARDIOVASCULAR: Denies chest pain, shortness of breath, orthopnea, PND or palpitations. RESPIRATORY: Denies cough. GASTROINTESTINAL: Denies abdominal pain, diarrhea, constipation, nausea or vomiting. MUSCULOSKELETAL: Denies myalgias. NEUROLOGIC: Denies numbness, tingling, headacbe or weakness. ENDOCRINE: Denies fatigue, weight change, polydipsia or polyurina. GENITOURINARY: Denies burning, hematuria or urgency with micturation. HEMATOLOGIC: Denies history of anemia or bleeding. PHYSICAL EXAMINATION Vitals Reviewed CONSTITUTIONAL: No apparent distress. HEENT: Head is normocephalic. Pupils are equal, round. Sclerae anicteric. Mucous membranes of the mouth are moist. No JVD. No carotid bruit. CHEST EXAMINATION: Lungs are clear to auscultation. No chest wall tenderness is noted on palpation or with deep breathing. HEART EXAMINATION: Regular rate and rhythm. S1, S2 heard. No murmurs, gallops or rub. ABDOMEN: Soft, nontender. Positive bowel sounds. EXTREMITIES: 2+ peripheral pulses, no lower extremity edema and no calf tenderness. SKIN: warm, dry NEUROLOGIC EXAMINATION: Patient is awake, alert and oriented x3. ASSESSMENT Paroxysmal atrial fibrillation with rapid ventricular response, currently maintaining sinus mechanism. [id number] score 2 Hypertension PLAN -2D echocardiogram obtained, reviewed by Dr. Martinez at bedside, patient with normal LV systolic function and mild mitral regurgitation -We will start Eliquis 5mg BID, per case management medication is covered -Check TSH, Lipid panel, hemoglobin A1C. -Continue home Dyazide -Patient is stable to be discharged home today and follow up with cardiology appointment with Dr. Martinez after discharge for extended monitoring of atrial fibrillation and blood pressure management Nurse Practitioner note has been reviewed, I agree with a documented findings and plan of care. Patient was seen and examined. Past Medical History Past Medical History: Hypertension Additional Past Medical History / Comment(s): hx of menieres, possible hemmorhoids History of Any Multi-Drug Resistant Organisms: None Reported Past Surgical History: Appendectomy, Section Additional Past Surgical History / Comment(s): colonoscopy Past Anesthesia/Blood Transfusion Reactions: No Reported Reaction Past Psychological History: No Psychological Hx Reported Smoking Status: Never smoker Past Alcohol Use History: Rare Past Drug Use History: None Reported - Past Family History Mother Family Medical History: No Reported History Medications and Allergies Home Medications Medication Instructions Recorded Confirmed Type Cetirizine HCl [Zyrtec] 10 mg PO HS 05/08/19 05/24/21 History Triamterene-Hctz 37.5-25Mg 1 tab PO DAILY 05/08/19 05/24/21 History [Dyazide 37.5-25 Capsule] ALPRAZolam [Xanax] 0.125 - 0.25 mg PO TID PRN 05/24/21 05/24/21 History Estrogens, Conjugated [Premarin] 0.625 mg PO W/SUPPER 05/24/21 05/24/21 History Multivit-Min/Iron/Folic/Lutein 1 tab PO W/SUPPER 05/24/21 05/24/21 History [Centrum Silver Women Tablet] Apixaban [Eliquis] 5 mg PO BID 30 Days #60 tab 05/25/21 Rx Allergies Allergy/AdvReac Type Severity Reaction Status Date / Time amoxicillin Allergy Rash/Hives Verified 08/21/20 21:08 Physical Exam Vitals: Vital Signs Temp Pulse Pulse Resp BP Pulse Ox 05/25/21 05:00 98.2 F 76 16 156/92 98 05/25/21 00:13 98.2 F 76 05/24/21 23:30 98.3 F 75 20 139/86 96 05/24/21 20:50 67 18 89/47 05/24/21 20:40 44 L 26 H 80/54 05/24/21 20:08 98.2 F 88 16 142/92 99 05/24/21 18:53 85 16 149/92 98 05/24/21 18:11 126 H 18 113/92 98 05/24/21 17:58 174 H 18 175/107 99 05/24/21 17:43 97.4 F L 139 H 18 136/117 99 Intake and Output 05/24/21 05/25/21 05/25/21 22:59 06:59 14:59 Intake Total 14.432 84.833 Balance 14.432 84.833 Intake: Intake, IV Titration 14.432 84.833 Amount Heparin Sod,Pork in 0.45% 14.432 84.833 NaCl 25,000 unit In 0.45 % NaCl 1 250ml.bag @ 12 UNITS/KG/HR 10.56 mls/hr IV .[id number] [facility] Rx#: [id number] Other: # Voids 1 Weight 87.997 kg Results 05/25/21 08:55 05/24/21 18:03 Cardiac Enzymes 05/24/21 05/24/2122 Range/Units 18:03 18:03 22:47 AST 20 (14-36) U/L Troponin I 0.013 0.037 H* (0.000-0.034) ng/mL 05/25/21 Range/Units 02:29 AST (14-36) U/L Troponin I 0.019 (0.000-0.034) ng/mL Coagulation 05/24/21 05/25/21 Range/Units 18:03 00:48 PT 10.0 (9.0-12.0) sec APTT 24.7 28.3 (22.0-30.0) sec CBC 05/24/21 Range/Units 18:03 WBC 7.0 (3.8-10.6) k/uL RBC 5.02 (3.80-5.40) m/uL Hgb 16.1 H (11.4-16.0) gm/dL Hct 48.2 H (34.0-46.0) % Plt Count 312 (150-450) k/uL Comprehensive Metabolic Panel 05/24/21 Range/Units 18:03 Sodium 140 (137-145) mmol/L Potassium 3.3 L (3.5-5.1) mmol/L Chloride 103 (98-107) mmol/L Carbon Dioxide 24 (22-30) mmol/L BUN 15 (7-17) mg/dL Creatinine 0.72 (0.52-1.04) mg/dL Glucose 144 H (74-99) mg/dL Calcium 10.0 (8.4-10.2) mg/dL AST 20 (14-36) U/L ALT 16 (4-34) U/L Alkaline Phosphatase 65 (38-126) U/L Total Protein 7.3 (6.3-8.2) g/dL Albumin 4.6 (3.5-5.0) g/dL Current Medications Generic Name Dose Route Start Last Admin Trade Name Freq PRN Reason Stop Dose Admin Alprazolam 0.25 mg 05/24/21 22:12 Alprazolam 0.25 Mg Tab PO TID PRN Anxiety Heparin Sodium (Porcine) 0 unit 05/24/21 17:53 05/25/21 04:58 Heparin Sodium 1,000 Un/Ml (10ml Vl) IV 4,000 unit PER PROTOCOL PRN Administration Low PTT Protocol Heparin Sodium/Sodium Chloride 250 mls @ 10.56 mls/hr 05/24/21 18:00 05/25/21 04:54 25,000 unit/ Sodium Chloride IV 14.36 units/kg/hr .[id number] [facility] 12.636 mls/hr Titration Protocol 12 UNITS/KG/HR Diltiazem HCl 125 mg/ Sodium 125 mls @ 10 mls/hr 05/24/21 18:00 05/24/21 18:08 Chloride IV 10 mg/hr .[id number] G[facility] 10 mls/hr Administration 10 MG/HR Loratadine 10 mg 05/24/21 22:15 05/24/21 22:46 Loratadine 10 Mg Tab PO Not Given HS GÉNESIS Melatonin 5 mg 05/25/21 01:00 05/25/21 01:13 Melatonin 5 Mg Tablet PO 5 mg HS GÉNESIS Administration Naloxone HCl 0.2 mg 05/24/21 19:39 Naloxone 0.4 Mg/Ml 1 Ml Vial IV Q2M PRN Opioid Reversal Triamterene/Hydrochlorothiazide 1 each 05/25/21 09:00 Triamterene-Hctz 37.5-25mg 1 Each Cap PO DAILY GÉNESIS Intake and Output 05/24/21 05/25/21 05/25/21 22:59 06:59 14:59 Intake Total 14.432 84.833 Balance 14.432 84.833 Intake: Intake, IV Titration 14.432 84.833 Amount Heparin Sod,Pork in 0.45% 14.432 84.833 NaCl 25,000 unit In 0.45 % NaCl 1 250ml.bag @ 12 UNITS/KG/HR 10.56 mls/hr IV .[id number] [facility] Rx#: [id number] Other: # Voids 1 Weight 87.997 kg 05/24/21 18:03 05/24/21 18:03
[2021-05-25 10:08] LABS: African American GFR (CKD) >90 (>60 ml/min/1.73 sqM); Anion Gap 6 mmol/L; Blood Urea Nitrogen 14 mg/dL (7-17); Calcium 9.3 mg/dL (8.4-10.2); Carbon Dioxide 25 mmol/L (22-30); Chloride 107 mmol/L (98-107); Glucose 119 mg/dL (74-99); Non-African American GFR(CKD) 89 (>60 ml/min/1.73 sqM); Potassium 3.7 mmol/L (3.5-5.1); Sodium 138 mmol/L (137-145)
--- NOTE | 2021-05-25 11:01 | ECHOF ---
Referral Reason:new afib MEASUREMENTS -------- HEIGHT: 162.6 cm WEIGHT: 88.0 kg BP: 156/92 RVIDd: 2.8 cm (< 3.3) IVSd: 1.4 cm (0.6 - 1.1) LVIDd: 3.3 cm (3.9 - 5.3) LVPWd: 1.5 cm (0.6 - 1.1) IVSs: 1.7 cm LVIDs: 2.2 cm LVPWs: 1.8 cm LAESV Index (A-L): 29.54 ml/m Ao Diam: 2.7 cm (2.0 - 3.7) AV Cusp: 1.8 cm (1.5 - 2.6) LA Diam: 3.9 cm (2.7 - 3.8) MV EXCURSION: 17.009 mm (> 18.000) MV EF SLOPE: 63 mm/s (70 - 150) EPSS: 0.4 cm MV E Jonathan: 0.89 m/s MV DecT: 186 ms MV A Jonathan: 1.16 m/s MV E/A Ratio: 0.77 RAP: 5.00 mmHg RVSP: 33.09 mmHg FINDINGS -------- Sinus rhythm. This was a technically adequate study. The left ventricular size is normal. There is moderate concentric left ventricular hypertrophy. O verall left ventricular systolic function is normal with, an EF between 55 - 60 %. The diastolic fi lling pattern is normal for the age of the patient 13.32. The right ventricle is normal in size. LA is midly dilated 29-33ml/m2. The right atrial size is normal. Interatrial and interventricular septum intact. There is no evidence of aortic regurgitation. There is no evidence of aortic stenosis. Mild mitral regurgitation is present. Mild tricuspid regurgitation present. There is no evidence of pulmonary hypertension. The right v entricular systolic pressure, as measured by Doppler, is 33.09mmHg. There is no pulmonic regurgitation present. The aortic root size is normal. IVC Not well visulized. There is no pericardial effusion. CONCLUSIONS -------- 1. The left ventricular size is normal. 2. There is moderate concentric left ventricular hypertrophy. 3. Overall left ventricular systolic function is normal with, an EF between 55 - 60 %. 4. The diastolic filling pattern is normal for the age of the patient 13.32 5. LA is midly dilated 29-33ml/m2. 6. Mild mitral regurgitation is present. 7. Mild tricuspid regurgitation present. NURSE SUPERVISOR: Carolann Gonzalez RDCS
--- NOTE | 2021-05-25 12:26 | P.EPCON ---
Electrophysiology Consult - EP Consult Electrophysiology Consult: DC for dictation by this practitioner Impression Patient admitted with palpitations Found to be in atrial fibrillation Has converted to sinus rhythm First documented episode History of hypertension On Dyazide Says her blood pressures usually around 130/85 mmHg Denies alcohol use TSH 3.6 Sodium 3.7 Normal BUN and creatinine Lipid panel and hemoglobin A1c pending Borderline troponin which is normalized likely myocardial injury secondary to A. fib with RVR and elevated blood pressure readings told her that time 2-D echo shows preserved LV systolic function with mild MR and mild tricuspid regurgitation Future considerations Recalculation of her OLIVERIO VASC or For now she will take anticoagulation for about a month and we'll reassess to see if she needs long-term anticoagulation Currently she has a history of hypertension and is a female Hemoglobin A1c elevated Blood pressure management preferably with angiotensin receptor blockers or kirstie inhibitors I will see her in the office in about 2 weeks
[2021-05-25 12:58] VITALS: PULSE 78; RESP 14
--- NOTE | 2021-05-25 13:26 | P.DS ---
Providers Date of admission: 05/24/21 19:39 Expected date of discharge: 05/25/21 Attending physician: Moe Rao MD Consults: 05/24/21 19:22 Consult Physician Routine Consulting Provider: Red Beal Consult Reason/Comments: new onset afib Do you want consulting provider notified?: Yes Primary care physician: [facility] Course: New onset A. fib with RVR symptomatic Mild hypokalemia Hypertension Patient was admitted for AFlutter with RVR. Troponins were trended and negative. Cardiology and Electrophysiology were consulted to help manage. Patient was started on a heparin gtt and diltiazem gtt and spontaneously converted to sinus rhythm, then briefly became hypotensive until the dilt gtt was stopped. Pts echo showed good EF with no WMA. She was discharged home on Eliquis with plans to f/u with EP. Assessment: Gen: awake, alert HEENT: normocephalic, atraumatic, good hearing acuity, moist mucous membranes Resp: good air exchange, breathing comfortably with no accessory muscle use CVS: good distal perfusion x 4, GI: soft, NTTP, ND : no SPT, no CVAT, bolanos catheter not present MSK: no pitting edema, no clubbing Neuro: non-focal, moving all extremities Psych: cooperative, euthymic mood Patient Condition at Discharge: Fair Plan - Discharge Summary Discharge Rx Participant: No New Discharge Prescriptions: New Apixaban [Eliquis] 5 mg PO BID 30 Days #60 tab Continue Cetirizine HCl [Zyrtec] 10 mg PO HS Triamterene-Hctz 37.5-25Mg [Dyazide 37.5-25 Capsule] 1 tab PO DAILY ALPRAZolam [Xanax] 0.125 - 0.25 mg PO TID PRN PRN Reason: Anxiety Multivit-Min/Iron/Folic/Lutein [Centrum Silver Women Tablet] 1 tab PO W/SUPPER Estrogens, Conjugated [Premarin] 0.625 mg PO W/SUPPER Discharge Medication List Cetirizine HCl [Zyrtec] 10 mg PO HS 05/08/19 [History] Triamterene-Hctz 37.5-25Mg [Dyazide 37.5-25 Capsule] 1 tab PO DAILY 05/08/19 [History] ALPRAZolam [Xanax] 0.125 - 0.25 mg PO TID PRN 05/24/21 [History] Estrogens, Conjugated [Premarin] 0.625 mg PO W/SUPPER 05/24/21 [History] Multivit-Min/Iron/Folic/Lutein [Centrum Silver Women Tablet] 1 tab PO W/SUPPER 05/24/21 [History] Apixaban [Eliquis] 5 mg PO BID 30 Days #60 tab 05/25/21 [Rx] Follow up Appointment(s)/Referral(s): Leonardo Martinez MD [STAFF PHYSICIAN] - 2 Weeks (pt to make own appt ) Avery Tate MD [Primary Care Provider] - 1-2 days (pt to make own appt ) Patient Instructions/Handouts: A-fib (Atrial Fibrillation) (DC) Activity/Diet/Wound Care/Special Instructions: Eliquis copay is $45, 1st month free at [facility] and can use the $10 copay card. Discharge Disposition: HOME SELF-CARE
[2021-05-25 15:26] LABS: Chol/HDL Ratio 2.04 Ratio; LDL Cholesterol,Calculated 64.2 mg/dL (0.0-131.0)
== END 2021-05-25 13:00 | disposition home or self-care (01) | DRG 309 ==
LOC: EC 17:30 → 3SCARD 19:39
PROVIDERS: ADMIT Internal Medicine; ATTEND Internal Medicine
DX: I48.0 Paroxysmal atrial fibrillation (principal); E87.2 Acidosis; E87.6 Hypokalemia; I10 Essential (primary) hypertension; I45.10 Unspecified right bundle-branch block; I48.92 Unspecified atrial flutter; Z20.822 Contact with and (suspected) exposure to COVID-19; Z82.3 Family history of stroke; Z82.49 Family history of ischemic heart disease and other diseases of the circulatory system; K64.9 Unspecified hemorrhoids; R77.8 Other specified abnormalities of plasma proteins; I95.9 Hypotension, unspecified
CPT/HCPCS: 36415; 71045; 80048; 80053; 80061; 83036; 83605; 83735; 83880; 84443; 84484; 85025; 85610; 85730; 86850; 86900; 86901; 87635; 93005; 93306; 96365; 96366; 96368; 99285

== ENCOUNTER 2021-06-04 19:12 | Emergency (ER) | payer BC ==
[2021-06-04 19:36] VITALS: RESP 18; TEMP 97.9
--- NOTE | 2021-06-04 19:37 | ED ---
General Adult HPI - General Source: patient, EMS, RN notes reviewed, old records reviewed Mode of arrival: EMS Limitations: no limitations <Barrington Bonilla - Last Filed: 06/04/21 20:53> <Mookie Michelle - Last Filed: 06/04/21 23:14> - General Chief complaint: Chest Pain Stated complaint: Cardiac Symptoms Time Seen by Provider: 06/04/21 19:12 - History of Present Illness Initial comments: Is a 62-year-old female with a recent diagnoses of rapid atrial fibrillation about 2 weeks ago who started having palpitations today around 3-1/2 hours prior to arrival. She denied any overt shortness of breath or chest pain but just had a sensation of rapid heart rate with some associated dizziness. She was brought in by EMS they were not able to catch or any dysrhythmia during the transport. Patient has no other complaints modifying factors she does have a cardiology appointment this coming week. (Barrington Bonilla) - Related Data Home Medications Medication Instructions Recorded Confirmed Cetirizine HCl [Zyrtec] 10 mg PO HS 05/08/19 06/04/21 Triamterene-Hctz 37.5-25Mg 1 cap PO DAILY 05/08/19 06/04/21 [Dyazide 37.5-25 Capsule] ALPRAZolam [Xanax] 0.125 - 0.25 mg PO TID PRN 05/24/21 06/04/21 Estrogens, Conjugated [Premarin] 0.625 mg PO W/SUPPER 05/24/21 06/04/21 Multivit-Min/Iron/Folic/Lutein 1 tab PO W/SUPPER 05/24/21 06/04/21 [Centrum Silver Women Tablet] Valsartan 80 mg PO HS 06/04/21 06/04/21 Previous Rx's Medication Instructions Recorded Apixaban [Eliquis] 5 mg PO BID 30 Days #60 tab 05/25/21 Allergies Allergy/AdvReac Type Severity Reaction Status Date / Time amoxicillin Allergy Rash/Hives Verified 06/04/21 22:19 Review of Systems ROS Other: All systems not noted in ROS Statement are negative. <Barrington Bonilla - Last Filed: 06/04/21 20:53> ROS Other: All systems not noted in ROS Statement are negative. <Mookie Michelle - Last Filed: 06/04/21 23:14> ROS Statement: Those systems with pertinent positive or pertinent negative responses have been documented in the HPI. Past Medical History Past Medical History: Atrial Fibrillation, Hypertension Additional Past Medical History / Comment(s): hx of menieres, possible hemmorhoids History of Any Multi-Drug Resistant Organisms: None Reported Past Surgical History: Appendectomy, Section, Hysterectomy, Tonsillectomy Additional Past Surgical History / Comment(s): colonoscopy Past Anesthesia/Blood Transfusion Reactions: No Reported Reaction Past Psychological History: No Psychological Hx Reported Smoking Status: Never smoker Past Alcohol Use History: Rare Past Drug Use History: None Reported - Past Family History Mother Family Medical History: Hypertension Father Family Medical History: CVA/TIA Additional Family Medical History / Comment(s): CVA <Barrington Bonilla Last Filed: 06/04/21 20:53> General Exam Limitations: no limitations General appearance: alert, anxious Head exam: Present: atraumatic, normocephalic, normal inspection Eye exam: Present: normal appearance, PERRL, EOMI. Absent: scleral icterus, conjunctival injection, periorbital swelling ENT exam: Present: normal exam, mucous membranes moist Neck exam: Present: normal inspection, full ROM, other (No stridor JVD or bruits). Absent: tenderness, meningismus, lymphadenopathy Respiratory exam: Present: normal lung sounds bilaterally. Absent: respiratory distress, wheezes, rales, rhonchi, stridor Cardiovascular Exam: Present: normal rhythm, tachycardia, normal heart sounds. Absent: systolic murmur, diastolic murmur, rubs, gallop, clicks GI/Abdominal exam: Present: soft, normal bowel sounds. Absent: distended, tenderness, guarding, rebound, rigid Extremities exam: Present: normal inspection, full ROM, normal capillary refill. Absent: tenderness, pedal edema, joint swelling, calf tenderness Back exam: Present: normal inspection Neurological exam: Present: alert, oriented X3, CN II-XII intact Psychiatric exam: Present: normal affect, normal mood Skin exam: Present: warm, dry, intact, normal color. Absent: rash <Barrington Bonilla Last Filed: 06/04/21 20:53> - General Exam Comments Initial Comments: This is a well-developed well-nourished awake alert oriented 3 female (Barrington Bonilla) Course <Barrington Bonilla - Last Filed: 06/04/21 20:53> Vital Signs 06/04/21 06/04/21 06/04/21 19:23 19:35 22:25 Temperature 97.9 F Pulse Rate 111 H 98 72 Respiratory 18 18 18 Rate Blood Pressure 139/113 156/102 130/88 O2 Sat by Pulse 99 99 95 Oximetry - Reevaluation(s) Reevaluation #1: 06/04/21 20:53 Pending at this time x-rays negative patient's EKG appeared to be within normal limits patient's case will be endorsed to Dr. Michelle at our shift change (Barrington Bonilla) EKG Findings - EKG Results: EKG: interpreted by ERMD, sinus rhythm (Sinus rhythm with sinus arrhythmia rate 88. Interval 176 QRS duration 98 QT since QTC 380/459 incomplete right bundle- branch block left anterior fascicular block this is appear consistent with one dated 05/24/21 with her previous admission.) <Barrington Bonilla - Last Filed: 06/04/21 20:53> Medical Decision Making - Lab Data Result diagrams: 06/04/21 20:07 <Barrington Bonilla - Last Filed: 06/04/21 20:53> - Lab Data Result diagrams: 06/04/21 21:42 06/04/21 20:07 <Mookie Michelle - Last Filed: 06/04/21 23:14> - Medical Decision Making This patient is 61-year-old woman with palpitations who was signed out pending the results of her studies. I have reviewed all of this with the patient. She states that her symptoms have resolved. She is sinus rhythm on the monitor. Patient would like to go home and at this point appears stable for that. She does have a prearranged follow-up with Dr. Martinez, and she will call the office sunday morning to let them know that she was in. Patient will return should any symptoms recur or new symptoms develop. (Mookie Michelle) - Lab Data Lab Results 06/04/21 06/04/21 06/04/21 Range/Units 20:07 20:07 21:42 WBC 7.3 (3.8-10.6) k/uL RBC 4.50 (3.80-5.40) m/uL Hgb 14.5 (11.4-16.0) gm/dL Hct 42.1 (34.0-46.0) % MCV 93.6 (80.0-100.0) fL MCH 32.2 (25.0-35.0) pg MCHC 34.4 (31.0-37.0) g/dL RDW 12.0 (11.5-15.5) % Plt Count 257 (150-450) k/uL MPV 7.8 Neutrophils % 65 % Lymphocytes % 28 % Monocytes % 4 % Eosinophils % 2 % Basophils % 1 % Neutrophils # 4.7 (1.3-7.7) k/uL Lymphocytes # 2.0 (1.0-4.8) k/uL Monocytes # 0.3 (0-1.0) k/uL Eosinophils # 0.1 (0-0.7) k/uL Basophils # 0.1 (0-0.2) k/uL PT (9.0-12.0) sec INR (<1.2) APTT (22.0-30.0) sec Sodium 137 (137-145) mmol/L Potassium 3.4 L (3.5-5.1) mmol/L Chloride 100 (98-107) mmol/L Carbon Dioxide 25 (22-30) mmol/L Anion Gap 12 mmol/L BUN 15 (7-17) mg/dL Creatinine 0.73 (0.52-1.04) mg/dL Est GFR (CKD-EPI)AfAm >90 (>60 ml/min/1.73 sqM) Est GFR (CKD-EPI)NonAf 89 (>60 ml/min/1.73 sqM) Glucose 120 H (74-99) mg/dL Calcium 10.3 H (8.4-10.2) mg/dL Magnesium 2.0 (1.6-2.3) mg/dL Total Bilirubin 0.7 (0.2-1.3) mg/dL AST 21 (14-36) U/L ALT 18 (4-34) U/L Alkaline Phosphatase 50 (38-126) U/L Troponin I <0.012 (0.000-0.034) ng/mL Total Protein 7.0 (6.3-8.2) g/dL Albumin 4.5 (3.5-5.0) g/dL TSH 2.240 (0.465-4.680) mIU/L 06/04/21 Range/Units 21:42 WBC (3.8-10.6) k/uL RBC (3.80-5.40) m/uL Hgb (11.4-16.0) gm/dL Hct (34.0-46.0) % MCV (80.0-100.0) fL MCH (25.0-35.0) pg MCHC (31.0-37.0) g/dL RDW (11.5-15.5) % Plt Count (150-450) k/uL MPV Neutrophils % % Lymphocytes % % Monocytes % % Eosinophils % % Basophils % % Neutrophils # (1.3-7.7) k/uL Lymphocytes # (1.0-4.8) k/uL Monocytes # (0-1.0) k/uL Eosinophils # (0-0.7) k/uL Basophils # (0-0.2) k/uL PT 11.2 (9.0-12.0) sec INR 1.0 (<1.2) APTT 28.3 (22.0-30.0) sec Sodium (137-145) mmol/L Potassium (3.5-5.1) mmol/L Chloride (98-107) mmol/L Carbon Dioxide (22-30) mmol/L Anion Gap mmol/L BUN (7-17) mg/dL Creatinine (0.52-1.04) mg/dL Est GFR (CKD-EPI)AfAm (>60 ml/min/1.73 sqM) Est GFR (CKD-EPI)NonAf (>60 ml/min/1.73 sqM) Glucose (74-99) mg/dL Calcium (8.4-10.2) mg/dL Magnesium (1.6-2.3) mg/dL Total Bilirubin (0.2-1.3) mg/dL AST (14-36) U/L ALT (4-34) U/L Alkaline Phosphatase (38-126) U/L Troponin I (0.000-0.034) ng/mL Total Protein (6.3-8.2) g/dL Albumin (3.5-5.0) g/dL TSH (0.465-4.680) mIU/L Disposition <Barrington Bonilla - Last Filed: 06/04/21 20:53> Is patient prescribed a controlled substance at d/c from ED?: No <Mookie Michelle - Last Filed: 06/04/21 23:14> Clinical Impression: Palpitations Disposition: HOME SELF-CARE Condition: Good Instructions (If sedation given, give patient instructions): Heart Palpitations (ED) Referrals: Avery Tate MD [Primary Care Provider] - 1-2 days Leonardo Martinez MD [STAFF PHYSICIAN] - 1-2 days
--- NOTE | 2021-06-04 20:15 | XR ---
EXAMINATION TYPE: XR chest 2V DATE OF EXAM: 06/04/2021 COMPARISON: 05/24/2021 HISTORY: Atrial fibrillation TECHNIQUE: 2 views FINDINGS: Heart and mediastinum are normal. Lungs are clear. Diaphragm is normal. There are chest althae ds. Bony thorax is intact. IMPRESSION: Normal chest. No change.
[2021-06-04 20:43] LABS: ALT 18 U/L (4-34); AST 21 U/L (14-36); African American GFR (CKD) >90 (>60 ml/min/1.73 sqM); Albumin 4.5 g/dL (3.5-5.0); Alkaline Phosphatase 50 U/L (38-126); Anion Gap 12 mmol/L; Blood Urea Nitrogen 15 mg/dL (7-17); Calcium 10.3 mg/dL (8.4-10.2); Carbon Dioxide 25 mmol/L (22-30); Chloride 100 mmol/L (98-107); Glucose 120 mg/dL (74-99); Non-African American GFR(CKD) 89 (>60 ml/min/1.73 sqM); Potassium 3.4 mmol/L (3.5-5.1); Sodium 137 mmol/L (137-145); Total Bilirubin 0.7 mg/dL (0.2-1.3)
[2021-06-04 21:59] LABS: Basophils # (A) 0.1 k/uL (0-0.2); Basophils % (A) 1 %; Eosinophils # (A) 0.1 k/uL (0-0.7); Eosinophils % (A) 2 %; HCT 42.1 % (34.0-46.0); HGB 14.5 gm/dL (11.4-16.0); Lymphocytes % (A) 28 %; MCH 32.2 pg (25.0-35.0); MCHC 34.4 g/dL (31.0-37.0); MCV 93.6 fL (80.0-100.0); Mean Platelet Volume 7.8; Monocytes # (A) 0.3 k/uL (0-1.0); Monocytes % (A) 4 %; Neutrophils # (A) 4.7 k/uL (1.3-7.7); Neutrophils % (A) 65 %; Platelet Count 257 k/uL (150-450); WBC 7.3 k/uL (3.8-10.6)
[2021-06-04 22:09] LABS: Partial Thromboplastin Time 28.3 sec (22.0-30.0); Prothrombin Time 11.2 sec (9.0-12.0)
[2021-06-04 23:34] VITALS: BP 147/91; PULSE 78
== END 2021-06-04 23:33 | disposition home or self-care (01) ==
LOC: EC 19:12
DX: R00.2 Palpitations (principal); I10 Essential (primary) hypertension; Z88.0 Allergy status to penicillin
CPT/HCPCS: 36415; 71046; 80053; 83735; 84443; 84484; 85025; 85610; 85730; 93005; 99285

== ENCOUNTER 2021-09-02 08:28 | Emergency (ER) | payer BC ==
[2021-09-02] MEDS ORDERED: SODIUM CHLORIDE 0.9% 500 ML 500 ML IV STA (08:35)
[2021-09-02 08:39] VITALS: TEMP 97.9
--- NOTE | 2021-09-02 09:06 | ED ---
General Adult HPI - General Chief complaint: Arrhythmia/Palpitations Stated complaint: AFIB Time Seen by Provider: 09/02/21 08:29 Source: patient, family, EMS, RN notes reviewed, old records reviewed Mode of arrival: EMS - History of Present Illness Initial comments: 61-year-old female presented for evaluation of palpitations, lightheadedness. Patient had an ablation performed about 10 days ago for atrial fibrillation. She states she has been doing quite well. She is not currently on any antiarrhythmic medications. She is anticoagulated. She denies central chest pain. Denies fever. Denies vomiting or diarrhea. - Related Data Home Medications Medication Instructions Recorded Confirmed Cetirizine HCl [Zyrtec] 10 mg PO DAILY PRN 05/08/19 08/23/21 Estrogens, Conjugated [Premarin] 0.625 mg PO W/SUPPER 05/24/21 08/23/21 Multivit-Min/Iron/Folic/Lutein 1 tab PO W/SUPPER 05/24/21 08/23/21 [Centrum Silver Women Tablet] Valsartan 80 mg PO HS 06/04/21 08/23/21 Flecainide [Tambocor] 50 mg PO Q12HR PRN 08/01/21 08/23/21 Triamterene/Hydrochlorothiazid 1 tab PO QAM 08/01/21 08/23/21 [Triamterene-Hctz 37.5-25 mg Tb] ALPRAZolam [Xanax] 0.25 mg PO BID PRN 08/23/21 08/23/21 Estrogens, Conjugated [Premarin] 0.625 mg PO DAILY 08/23/21 08/23/21 Previous Rx's Medication Instructions Recorded Apixaban [Eliquis] 5 mg PO BID 30 Days #60 tab 05/25/21 Colchicine 0.6 mg PO DAILY 14 Days #14 capsule 09/02/21 Metoprolol Tartrate 25 mg PO BID 30 Days #60 tab 09/02/21 Allergies Allergy/AdvReac Type Severity Reaction Status Date / Time amoxicillin Allergy Rash/Hives Verified 08/23/21 13:53 Review of Systems ROS Statement: Those systems with pertinent positive or pertinent negative responses have been documented in the HPI. ROS Other: All systems not noted in ROS Statement are negative. Past Medical History Past Medical History: Atrial Fibrillation, Hypertension Additional Past Medical History / Comment(s): hx of menieres, possible hemmorhoids History of Any Multi-Drug Resistant Organisms: None Reported Past Surgical History: Appendectomy, Section, Hysterectomy, Tonsillectomy Additional Past Surgical History / Comment(s): colonoscopy Past Anesthesia/Blood Transfusion Reactions: No Reported Reaction Past Psychological History: No Psychological Hx Reported Additional Psychological History / Comment(s): Pt resides with her spouse. She is independent. Smoking Status: Never smoker Past Alcohol Use History: Rare Past Drug Use History: None Reported - Past Family History Mother Family Medical History: Hypertension Father Family Medical History: CVA/TIA Additional Family Medical History / Comment(s): CVA General Exam General appearance: alert, in no apparent distress Head exam: Present: atraumatic, normocephalic Eye exam: Present: normal appearance, PERRL ENT exam: Present: normal exam Neck exam: Present: normal inspection. Absent: tenderness, meningismus Respiratory exam: Present: normal lung sounds bilaterally. Absent: respiratory distress, wheezes Cardiovascular Exam: Present: tachycardia, irregular rhythm GI/Abdominal exam: Present: soft. Absent: distended, tenderness, guarding Extremities exam: Present: normal inspection, normal capillary refill. Absent: pedal edema Neurological exam: Present: alert, oriented X3, CN II-XII intact. Absent: motor sensory deficit Skin exam: Present: warm, dry, intact. Absent: cyanosis, diaphoretic Course Vital Signs 09/02/21 08:30 Temperature 97.9 F Pulse Rate 69 Respiratory 18 Rate Blood Pressure 111/69 O2 Sat by Pulse 100 Oximetry - Reevaluation(s) Reevaluation #1: 09/02/21 0850 Patient converts to sinus rhythm without any medication. EKG Findings - EKG Comments: EKG Findings:: EKG: Atrial fibrillation with RVR left anterior fascicular block, rate of 137, QRS duration 82, QTC 365, no ST segment elevation. EKG repeated at a 46, sinus rhythm rate of 95, IA interval 200, QRS duration 85, QTC 398, no ST segment elevation Medical Decision Making - Medical Decision Making 59-year-old female who presented with A. christina with RVR but converts prior to any medical treatment. She had an ablation about 10 days ago. She's in sinus rhythm with stable blood pressure. She has normal electrolytes. I did discuss case with Dr. Martinez, covering for cardiology who is familiar with this patient. He recommends starting colchicine as well as metoprolol 25 mg twice a day. The patient's son who is at bedside is a veneer press operator and will monitor both blood pressure and heart rate closely at home. Return parameters discussed. She will follow-up with both her ballistics laboratory gunsmith and primary care physician. - Lab Data Result diagrams: 09/02/21 08:45 09/02/21 08:45 Lab Results 09/02/21 09/02/21 09/02/21 Range/Units 08:45 08:45 08:45 WBC 6.1 (3.8-10.6) k/uL RBC 4.53 (3.80-5.40) m/uL Hgb 14.5 (11.4-16.0) gm/dL Hct 42.9 (34.0-46.0) % MCV 94.7 (80.0-100.0) fL MCH 32.0 (25.0-35.0) pg MCHC 33.7 (31.0-37.0) g/dL RDW 12.7 (11.5-15.5) % Plt Count 351 (150-450) k/uL MPV 7.2 Neutrophils % 48 % Lymphocytes % 39 % Monocytes % 6 % Eosinophils % 3 % Basophils % 1 % Neutrophils # 3.0 (1.3-7.7) k/uL Lymphocytes # 2.4 (1.0-4.8) k/uL Monocytes # 0.3 (0-1.0) k/uL Eosinophils # 0.2 (0-0.7) k/uL Basophils # 0.1 (0-0.2) k/uL PT 11.0 (9.0-12.0) sec INR 1.0 (<1.2) APTT 28.0 (22.0-30.0) sec Sodium 134 L (137-145) mmol/L Potassium 3.6 (3.5-5.1) mmol/L Chloride 100 (98-107) mmol/L Carbon Dioxide 23 (22-30) mmol/L Anion Gap 11 mmol/L BUN 15 (7-17) mg/dL Creatinine 0.73 (0.52-1.04) mg/dL Est GFR (CKD-EPI)AfAm >90 (>60 ml/min/1.73 sqM) Est GFR (CKD-EPI)NonAf 89 (>60 ml/min/1.73 sqM) Glucose 116 H (74-99) mg/dL Calcium 9.4 (8.4-10.2) mg/dL Magnesium 2.1 (1.6-2.3) mg/dL Total Bilirubin 0.8 (0.2-1.3) mg/dL AST 20 (14-36) U/L ALT 14 (4-34) U/L Alkaline Phosphatase 58 (38-126) U/L Total Protein 6.8 (6.3-8.2) g/dL Albumin 4.2 (3.5-5.0) g/dL Disposition Clinical Impression: Atrial fibrillation Disposition: HOME SELF-CARE Condition: Good Instructions (If sedation given, give patient instructions): A-fib (Atrial Fibrillation) (ED) Prescriptions: Colchicine 0.6 mg PO DAILY 14 Days #14 capsule Metoprolol Tartrate 25 mg PO BID 30 Days #60 tab Is patient prescribed a controlled substance at d/c from ED?: No Referrals: Avery Tate MD [Primary Care Provider] - 1-2 days Leonardo Martinez MD [STAFF PHYSICIAN] - 1-2 days Time of Disposition: 10:13
[2021-09-02 09:07] LABS: ALT 14 U/L (4-34); AST 20 U/L (14-36); African American GFR (CKD) >90 (>60 ml/min/1.73 sqM); Albumin 4.2 g/dL (3.5-5.0); Alkaline Phosphatase 58 U/L (38-126); Anion Gap 11 mmol/L; Blood Urea Nitrogen 15 mg/dL (7-17); Calcium 9.4 mg/dL (8.4-10.2); Carbon Dioxide 23 mmol/L (22-30); Chloride 100 mmol/L (98-107); Glucose 116 mg/dL (74-99); Magnesium 2.1 mg/dL (1.6-2.3); Non-African American GFR(CKD) 89 (>60 ml/min/1.73 sqM); Potassium 3.6 mmol/L (3.5-5.1); Sodium 134 mmol/L (137-145); Total Bilirubin 0.8 mg/dL (0.2-1.3); Total Protein 6.8 g/dL (6.3-8.2)
[2021-09-02 09:14] LABS: Basophils # (A) 0.1 k/uL (0-0.2); Basophils % (A) 1 %; Eosinophils # (A) 0.2 k/uL (0-0.7); Eosinophils % (A) 3 %; HCT 42.9 % (34.0-46.0); HGB 14.5 gm/dL (11.4-16.0); Lymphocytes # (A) 2.4 k/uL (1.0-4.8); Lymphocytes % (A) 39 %; MCHC 33.7 g/dL (31.0-37.0); MCV 94.7 fL (80.0-100.0); Mean Platelet Volume 7.2; Monocytes # (A) 0.3 k/uL (0-1.0); Monocytes % (A) 6 %; Neutrophils % (A) 48 %; Platelet Count 351 k/uL (150-450); RBC 4.53 m/uL (3.80-5.40); RDW 12.7 % (11.5-15.5); WBC 6.1 k/uL (3.8-10.6)
[2021-09-02] MEDS ORDERED: METOPROLOL TARTRATE 25 MG TAB PO STA (10:04)
[2021-09-02 10:40] VITALS: BP 132/91; PULSE 96; RESP 16
[2021-09-02] MEDS ORDERED: COLCHICINE 0.6 MG EACH PO SCH (11:00)
== END 2021-09-02 10:35 | disposition home or self-care (01) ==
LOC: EC 08:28
DX: I48.91 Unspecified atrial fibrillation (principal); I10 Essential (primary) hypertension; Z88.0 Allergy status to penicillin
CPT/HCPCS: 36415; 80053; 83735; 85025; 85610; 85730; 93005

== ENCOUNTER → 2022-02-22 | Outpatient (CLI) | payer BC ==
--- NOTE | 2022-02-23 19:55 | MM ---
Reason for Exam: Screening (asymptomatic). Last screening mammogram was performed 12 month(s) ago. Patient History: Menarche at age 11. First Full-Term at age 23. Hysterectomy at age 37. Postmenopausal. Currently using Estrogen, beginning at age 51 for 8 years. 07/24/2003, Benign Cyst Aspiration on the left side. Maternal aunt had breast cancer, age 55. Risk Values: Rupa 5 year model risk: 1.4%. NCI Lifetime model risk: 6.2%. Prior Study Comparison: 01/02/2019 Bilateral Screening Mammogram, [facility]. 02/12/2020 Bilateral Screening Mammogram, [facility]. 02/21/2021 Bilateral Screening Mammogram, [facility]. Tissue Density: The breast tissue is heterogeneously dense. This may lower the sensitivity of mammography. Findings: Analyzed By CAD. There is no suspicious group of microcalcifications or new suspicious mass in either breast. Overall Assessment: Negative, BI-RAD 1 Management: Screening Mammogram of both breasts in 1 year. 1. Patient should continue monthly self breast exams. 2. A clinical breast exam by your physician is recommended on an annual basis. 3. This exam should not preclude additional follow-up of suspicious palpable abnormalities. Electronically signed and approved by: Orquidea Zaidi M.D. Radiologist
== END | disposition home or self-care (01) ==
LOC: RADMAMWWP 08:04
PROVIDERS: ATTEND Obstetrics & Gynecology
DX: Z12.31 Encounter for screening mammogram for malignant neoplasm of breast (principal); Z78.0 Asymptomatic menopausal state; Z80.3 Family history of malignant neoplasm of breast; Z98.890 Other specified postprocedural states
CPT/HCPCS: 77067

== ENCOUNTER → 2022-04-04 | Outpatient (CLI) | payer BC ==
--- NOTE | 2022-04-04 16:38 | BD ---
EXAMINATION TYPE: Axial Bone Density DATE OF EXAM: 04/04/2022 COMPARISON: 02/05/2017 CLINICAL HISTORY: 61 years year old Female. ICD-10 CODE: N95.1 MENOPAUSAL AND FEMALE CLIMACTERIC STA VIANNEY Height: 5FT 4INCHES Weight: 199.7 FRAX RISK QUESTIONS: Alcohol (3 or more units per day): Family History (Parent hip fracture): NO Glucocorticoids (More than 3mos): NO (Ex: prednisone, prednisolone, methylprednisolone, dexamethasone, and hydrocortisone). History of Fracture in Adulthood: NO Secondary Osteoporosis: 1. Type 1 Diabetes: NO 2. Hyperthyroidism: NO 3. Menopause before 45: NO 4. Malnutrition: NO 5. Chronic liver disease: NO Rheumatoid Arthritis: NO Current Tobacco Use: NO RISK FACTORS HISTORY OF: Hip Fracture (Right/Left): NO Spine Fracture: NO History of Wrist Fracture: NO Surgery to Spine/Hip(right/left)/Wrist (right/left): NO Family History of Osteoporosis: NO Active: YES Diet low in dairy products/other sources of calcium: YES Postmenopausal woman: YES Take estrogen and/or progesterone medications: YES How long: PREMARIN, APPROX 6 YEARS Lost more than 2 inches in height since high school: NO Frequent falls: NO Poor Health: GOOD Hyperparathyroidism: NO Adrenal Insufficiency: NO MEDICATIONS: Prednisone or other steroids: NO Thyroid Medications: NO Osteoporosis Medications: NO Additional Medications: TRIAMTERERENE, PREMARIN, GENERIC ZYRTEC, ELIQUIS, MULTIVITAMIN, VALSARTAN, FL ECAINIDE, VITAMIN D Additional History: RECENT DIAGNOSIS OF A-FIB EXAM MEASUREMENTS: Bone mineral densitometry was performed using the [employer] System. Bone mineral density as measured about the Lumbar spine is: ----- L1-L4(G/cm2): 1.569 T Score Values are as follows: ----- L1: 1.6 ----- L2: 3.7 ----- L3: 4.7 ----- L4: 2.8 ----- L1-L4: 3.2 Bone mineral density has: INCREASED 4.1% since study of: 02/05/2017 Bone mineral density about the R hip (g/cm2): 1.129 Bone mineral density about the L hip (g/cm2): 1.148 T Score values are as follows: -----R Neck: 0.7 -----L Neck: 0.8 -----R Total: 1.6 -----L Total: 1.2 Bone mineral density has: DECREASED -5.1% since study of: 02/05/2017 FRAX%s: The graph provided illustrates a 2.4% chance for a major osteoporotic fx and a 0.1% chance fo r the hips probability for fx in 10 years time. IMPRESSION: Normal (Values between +1 and -1 indicate normal bone mass). Consider repeating this study in 5 year s or sooner if there is some new clinical indication. NOTE: T-SCORE=SD OF THE YOUNG ADULT MEAN.
== END | disposition home or self-care (01) ==
LOC: RADBDWWP 14:43
PROVIDERS: ATTEND Obstetrics & Gynecology
DX: N95.1 Menopausal and female climacteric states (principal)
CPT/HCPCS: 77080

== ENCOUNTER → 2022-07-26 | Outpatient (CLI) | payer BC ==
[2022-07-26 15:26] LABS: HCT 40.2 % (37.2-46.3); HGB 12.8 g/dL (12.0-15.0); MCH 30.7 pg (27.0-32.0); MCHC 31.8 g/dL (32.0-37.0); MCV 96.4 fL (80.0-97.0); NRBC Per 100 WBC 0 /100 WBCS (0.0-0.0); Platelet Count 300 X 10*3/uL (140-440); RBC 4.17 X 10*6/uL (4.10-5.20); RDW 12.7 % (11.5-14.5)
[2022-07-26 16:42] LABS: ALT 22 U/L (8-44); AST 19 U/L (13-35); African American GFR (CKD) 79.4 (60.0-200.0); Albumin 4.7 g/dL (3.8-4.9); Albumin/Globulin Ratio 2.06 (1.60-3.17); Alkaline Phosphatase 50 U/L (41-126); BUN/Creat Ratio 21.12 Ratio (12.00-20.00); Blood Urea Nitrogen 18.9 mg/dL (9.0-27.0); Calcium 10.1 mg/dL (8.7-10.3); Chloride 100 mmol/L (96-109); Chol/HDL Ratio 2.29 Ratio; Globulin 2.3 g/dL (1.6-3.3); Glucose 102 mg/dL (70-110); LDL Cholesterol,Calculated 73.9 mg/dL (0.0-131.0); Non-African American GFR(CKD) 68.5 (60.0-200.0); Potassium 4.2 mmol/L (3.5-5.5); Sodium 142 mmol/L (135-145); Total Protein 6.9 g/dL (6.2-8.2)
== END | disposition home or self-care (01) ==
LOC: LABWHC1 08:08
PROVIDERS: ATTEND Family Medicine
DX: Z00.01 Encounter for general adult medical examination with abnormal findings (principal); E66.3 Overweight; I10 Essential (primary) hypertension; R53.83 Other fatigue
CPT/HCPCS: 36415; 80053; 80061; 85027

== ENCOUNTER → 2023-07-13 | Outpatient (CLI) | payer BC ==
[2023-07-13 11:33] LABS: HCT 42.6 % (37.2-46.3); HGB 14.2 g/dL (12.0-15.0); MCH 30.7 pg (27.0-32.0); MCHC 33.3 g/dL (32.0-37.0); MCV 92.2 FL (80.0-97.0); Mean Platelet Volume 9.9 FL (9.5-12.2); NRBC Per 100 WBC 0 X 10*3/uL (0.00-0.01); Platelet Count 260 X 10*3/uL (140-440); RBC 4.62 X 10*6/uL (4.10-5.20); RDW 12.7 % (11.5-14.5); WBC 4.97 X 10*3/uL (4.50-10.00)
[2023-07-13 11:47] LABS: ALT 25 U/L (8-44); AST 23 U/L (13-35); Albumin 4.7 g/dL (3.8-4.9); Albumin/Globulin Ratio 2.14 Ratio (1.60-3.17); Alkaline Phosphatase 50 U/L (41-126); BUN/Creat Ratio 19.67 Ratio (12.00-20.00); Blood Urea Nitrogen 17.7 mg/dL (9.0-27.0); Calcium 10.3 mg/dL (8.7-10.3); Carbon Dioxide 29.3 mmol/L (21.6-31.8); Chloride 101 mmol/L (96-109); Chol/HDL Ratio 2.02 Ratio; Globulin 2.2 g/dL (1.6-3.3); Glucose 109 mg/dL (70-110); LDL Cholesterol,Calculated 61.9 mg/dL (0.0-131.0); Potassium 4.2 mmol/L (3.5-5.5); Sodium 141 mmol/L (135-145); Total Bilirubin 0.6 mg/dL (0.3-1.2); Total Protein 6.9 g/dL (6.2-8.2); VLDL Calculation 17.74 mg/dL (5.00-40.00)
== END | disposition home or self-care (01) ==
LOC: LABWHC1 07:07
PROVIDERS: ATTEND Family Medicine
DX: Z00.01 Encounter for general adult medical examination with abnormal findings (principal); I10 Essential (primary) hypertension; E66.3 Overweight; R53.83 Other fatigue
CPT/HCPCS: 36415; 80053; 80061; 85027

== ENCOUNTER → 2024-03-21 | Outpatient (CLI) | payer BC ==
--- NOTE | 2024-03-28 12:45 | MM ---
Reason for Exam: Screening (asymptomatic). Last mammogram was performed 1 year(s) and 1 month(s) ago. Patient History: Menarche at age 11. First Full-Term at age 23. Hysterectomy at age 37. Postmenopausal. Currently using Estrogen, beginning at age 51 for 8 years. 07/24/2003, Benign Cyst Aspiration on the left side. Maternal aunt had breast cancer, age 55. Maternal aunt had breast cancer at or over age 50. Risk Values: Rupa 5 year model risk: 1.4%. NCI Lifetime model risk: 5.8%. Prior Study Comparison: 02/21/2021 Bilateral Screening Mammogram, [facility]. 02/22/2022 Bilateral MG screening mammo w CAD, [facility]. 02/23/2023 Bilateral MG screening mammo w CAD, [facility]. Tissue Density: The breasts are heterogeneously dense, which may obscure small masses. Findings: Analyzed By CAD. Right breast: There is no suspicious group of microcalcifications or new suspicious mass. Left breast: There is no suspicious group of microcalcifications or new suspicious mass. Overall Assessment: Negative, BI-RAD 1 Management: Screening Mammogram of both breasts in [address] [facility] will attempt to contact patient to return for supplemental views and ultrasound if indicated. Patient should continue monthly self-breast exams. A clinical breast exam by your physician is recommended on an annual basis. This exam should not preclude additional follow-up of suspicious palpable abnormalities. Note on Rupa scores and lifetime risk: 1. A Rupa score greater than 3% is considered moderate risk. If this is the case, consider specialist referral to assess eligibility for a risk reducing agent. 2. If overall lifetime risk for the development of breast cancer is 20% or higher, the patient may qualify for future screening with alternating mammogram and breast MRI. [facility], , 03/28/2024 12:37 PM. Electronically signed and approved by: Barrington Bee DO
== END | disposition home or self-care (01) ==
LOC: RADMAMWWP 11:27
PROVIDERS: ATTEND Obstetrics & Gynecology
DX: Z12.31 Encounter for screening mammogram for malignant neoplasm of breast (principal); R92.333 Mammographic heterogeneous density, bilateral breasts; Z78.0 Asymptomatic menopausal state; Z80.3 Family history of malignant neoplasm of breast
CPT/HCPCS: 77067